=== PATIENT | male | born 1960 | race Caucasian/White ===

== ENCOUNTER → 2020-09-30 10:50 | Outpatient (CLI) | payer OTHER, SELFPAY ==
--- NOTE | ~2020-09-30 | CT_ITS ---
EXAMINATION: CT abdomen pelvis w con DATE: 09/30/2020 11:21 INDICATION: Right upper quadrant abdominal pain TECHNIQUE: Computed tomography (CT) of the abdomen and pelvis was performed with 100 cc Omnipaque 350 intravenous contrast. Automated exposure control and iterative reconstruction technique were employe d. Exam dose: 1048.89 mGy-cm total exam DLP. COMPARISON: None. FINDINGS: The lung bases are clear of infiltrate or consolidation. Normal heart size. No pericardial or pleural effusion. Calcified right hilar nodes, calcified right lower lobe pulmonary granuloma and calcified splenic gra nulomas, consistent with old granulomatous disease. No hepatic space-occupying mass lesion. The gallbladder appears unremarkable. No bile duct or pancrea tic duct dilatation. No pancreatic mass lesion or calcification. Normal splenic size. Normal morphology of the adrenal glands. 1.4 cm upper pole right renal cyst. No space-occupying mass lesion of the kidneys is noted otherwise. No urinary tract calculus or hydroureteronephrosis. The urinary bladder is unremarkable. There is pr ostate enlargement and multiple prostate calcifications. Mild atherosclerotic calcification of the abdominal aorta. No abdominal aortic aneurysm. No intraperitoneal or retroperitoneal or pelvic mass lesion or adenopathy or ascites. Diverticulosis of the colon, mainly involving the sigmoid and descending colon; no CT evidence of div erticulitis. No bowel obstruction, bowel wall thickening, pneumatosis or intraperitoneal free air. No evidence of appendicitis. Chronic fracture deformity of the posterior aspect of the left 11th rib. Likely chronic compression fracture deformity of L4. Bilateral hip osteoarthritis. No suspicious osteolytic or osteoblastic lesions. IMPRESSION: 1.4 cm upper pole right renal cyst Diverticulosis of the colon; no CT evidence of diverticulitis Probable chronic compression fracture deformity of L4 Chronic fracture deformity of posterior left 11th rib Bilateral hip osteoarthritis Reviewed, dictated and finalized at [facility]. Reviewed, dictated and finalized at location B. OPALEONTOLOGIST
--- NOTE | ~2020-09-30 | CT_ITS ---
EXAMINATION: CT lung screening DATE: 09/30/2020 11:21 INDICATION: Personal history of tobacco dependence, prior smoker with 40 pack year history TECHNIQUE: Computed tomography (CT) of the chest was performed without intravenous contrast. The dose -length product (DLP) was 182.48 mGy-cm. Automated exposure control and iterative reconstruction tech YAZUO were employed. COMPARISON: None FINDINGS: There is mild emphysema. No suspicious pulmonary nodules are identified. Calcified pulmonar y nodules and calcified right hilar and subcarinal lymph nodes are consistent with old granulomatous disease. No pathologically enlarged thoracic lymph nodes are identified. The heart size is normal. Th ere is a 4.7 cm fusiform aneurysm of the ascending aorta. Calcified coronary artery atherosclerosis i s noted. Punctate calcifications in an otherwise normal spleen likely represent healed granulomatous disease. There is mild thoracic spondylosis. There is an old left 11th rib fracture. IMPRESSION: 1. Lung-RADS category 1S: Negative. Continue annual screening with noncontrast low-dose chest CT in 1 2 months. 2. 4.7 cm fusiform aneurysm of the ascending aorta. Reviewed, dictated and finalized at location [facility]. YTICAL STRATEGIST IMPRESSION: 1. Lung-RADS category 1S: Negative. Continue annual screening with noncontrast low-dose chest CT in 12 months. 2. 4.7 cm fusiform aneurysm of the ascending aorta.
[2020-09-30 11:09] LABS: Estimated Glomerular Filt Rate > 60
== END ==
PROVIDERS: PCP Internal Medicine; Visit Provider Internal Medicine
DX: Z12.2 Encounter for screening for malignant neoplasm of respiratory organs (principal); Z87.891 Personal history of nicotine dependence; R10.9 Unspecified abdominal pain; N28.1 Cyst of kidney, acquired; K57.30 Diverticulosis of large intestine without perforation or abscess without bleeding; S22.32XA Fracture of one rib, left side, initial encounter for closed fracture; M16.0 Bilateral primary osteoarthritis of hip
CPT/HCPCS: 71271; 74177; Q9967

== ENCOUNTER → 2020-11-18 07:40 | Outpatient (CLI) | payer OTHER, SELFPAY ==
--- NOTE | ~2020-11-18 | US_ITS ---
EXAMINATION: US right upper quadrant EXAM DATE: 11/18/2020 08:10 INDICATION: Right upper quadrant pain. TECHNIQUE: Multiple grayscale and Doppler images of the abdomen right upper quadrant were obtained (b y a technologist who performed the scan) and subsequently reviewed. There is no prior study for sujatha padilla. FINDINGS: The pancreatic head and body are normal in appearance. The pancreatic tail is not visualized. There is echogenic liver parenchyma, hepatic steatosis. Small region focal fatty sparing in characteristi c location. There is no evidence of intrahepatic biliary duct dilation. Portal venous flow was seen in the hepatopedal, normal direction and has normal Doppler waveform. No right-sided hydronephrosis . Common bile duct measures 4 mm, which is normal. The gallbladder wall is normal in thickness, with ex pected amount of distention. No sonographic evidence of pericholecystic fluid. There is no cholelit hiases. Technologist performing exam reports patient did not demonstrate sonographic Portillo's sign. Please note that this sign is less reliable in patients who have received pain medication. IMPRESSION: Hepatic steatosis. Reviewed, dictated and finalized at location [facility]. IMPRESSION: Hepatic steatosis.
== END ==
PROVIDERS: PCP Internal Medicine
DX: R10.11 Right upper quadrant pain (principal); K76.0 Fatty (change of) liver, not elsewhere classified
CPT/HCPCS: 76705

== ENCOUNTER → 2022-03-08 17:07 | Outpatient (CLI) | payer OTHER, SELFPAY ==
--- NOTE | ~2022-03-08 | MR_ITS ---
EXAMINATION: MR lumbar spine wo con DATE: 03/08/2022 17:34 INDICATION: Low back pain TECHNIQUE: Magnetic resonance imaging (MRI) of the lumbar spine was performed without intravenous con trast. Sequences included sagittal T2-weighted FSE, sagittal T2-weighted FS FSE, sagittal T1-weighted FSE, and axial T2-weighted FSE. COMPARISON: None FINDINGS: 3 mm anterolisthesis L4 on L5. Alignment is otherwise normal. Mild superior endplate compression frac ture with 20% right anterior vertebral body height loss at L4 with superimposed small Schmorl's node. There is prominent marrow edema at both sides of the abdomen right facet joints at L4-L5. Bone marro w signal is otherwise normal. Marrow signal is otherwise normal. Moderate disc height loss at L5-S1. Mild disc height loss at L3-L4 and L4-L5 and mild disc desiccation without disc height loss at L2-L3. The conus medullaris terminates at L1-L2. There is normal signal in the caudal spinal cord. Paravert ebral soft tissues are unremarkable. The following disc levels are specifically discussed: T12-L1: Disc is mildly bulging. There is mild bilateral facet joint osteoarthritis. There is no neura l foraminal stenosis. There is minimal central canal stenosis. L1-L2: Disc is bulging. There is left and moderate right facet joint osteoarthritis. There is mild le ft neural foraminal stenosis. There is mild central canal stenosis. L2-L3: Disc is mildly bulging. There is moderate bilateral facet joint osteoarthritis. There is mild bilateral neural foraminal stenosis. There is minimal central canal stenosis. L3-L4: Disc is bulging. There is moderate bilateral facet joint osteoarthritis. There is mild to mode rate bilateral neural foraminal stenosis. There is mild central canal stenosis. L4-L5: Annular fissure and broad-based disc extrusion extending from foraminal zone to foraminal zone with disc material extending a couple millimeters cephalad to the level of the inferior endplate of L4. There is severe bilateral facet joint osteoarthritis. There is moderate bilateral neural foramina l stenosis. There is moderate central canal stenosis. L5-S1: Disc is bulging. There is moderate left and mild to moderate right facet joint osteoarthritis. There is right and mild to moderate left neural foraminal stenosis. There is no central canal stenos is. IMPRESSION: 1. Moderate lower lumbar predominant spondylosis with moderate central canal stenosis at L4-L5 and mu ltilevel mild to moderate neural foraminal stenosis. 2. Prominent marrow edema associated with severe bilateral facet osteoarthritis at L4-L5. Reviewed, dictated and finalized at location A. IMPRESSION: 1. Moderate lower lumbar predominant spondylosis with moderate central canal st enosis at L4-L5 and multilevel mild to moderate neural foraminal stenosis. 2. Prominent marrow edema associated with severe bilateral facet osteoarthritis at L4-L5.
== END ==
PROVIDERS: PCP Internal Medicine; Visit Provider Internal Medicine
DX: M54.50 Low back pain, unspecified (principal); M47.816 Spondylosis without myelopathy or radiculopathy, lumbar region; M48.061 Spinal stenosis, lumbar region without neurogenic claudication; M79.89 Other specified soft tissue disorders; M85.88 Other specified disorders of bone density and structure, other site
CPT/HCPCS: 72148

== ENCOUNTER → 2022-04-06 15:17 | Outpatient (CLI) | payer OTHER, SELFPAY ==
--- NOTE | ~2022-04-06 | CT_ITS ---
EXAMINATION: CT abdomen pelvis wo con DATE: 04/06/2022 15:37 INDICATION: Blood in urine TECHNIQUE: Computed tomography (CT) of the abdomen and pelvis was performed without intravenous contr ast. Automated exposure control and iterative reconstruction technique were employed. The dose-length product was 611.21 mGy-cm. COMPARISON: 09/30/2020.. FINDINGS: Lower thorax: Scattered trace bibasilar atelectasis. Aortic and mitral calcification. Liver: Normal. Biliary/Gallbladder: Partially contracted. No bile duct dilation. Pancreas: No mass or duct dilation. Spleen: Granulomatous calcifications. Adrenals:No mass. Kidneys: No suspicious mass, stone, or hydronephrosis. Simple right upper pole cyst. GI tract: No small or large bowel dilation. Normal appendix. Diverticulosis without diverticulitis. Mesentery/Peritoneum: No ascites, mass, or free air. Retroperitoneum: No mass. Atherosclerotic abdominal aortic and/or arterial calcifications. Pelvis: Minimal layering hyperdensity in the dependent urinary bladder. No bladder wall thickening or surrounding inflammatory change. Prostatomegaly with calcification.. Soft Tissues: Small, uncomplicated bilateral fat-containing inguinal hernias, otherwise the soft tiss ues tissues and body wall are unremarkable. Bones: No acute osseous finding. IMPRESSION: Minimal hyperdense material layering in the dependent urinary bladder, may reflect hemorrhage in ligh t of the given history. No nephrolithiasis or obstructive uropathy. No renal or collecting system mas s detected in this noncontrast examination. No other acute abdominopelvic process detected. Reviewed, dictated and finalized at location [facility]. IMPRESSION: Minimal hyperdense material layering in the dependent urinary bladder, may refl ect hemorrhage in light of the given history. No nephrolithiasis or obstructive uropathy. No renal or collecting system mass detected in this noncontrast exam ination. No other acute abdominopelvic process detected.
== END ==
PROVIDERS: PCP Internal Medicine; Visit Provider Internal Medicine
DX: R31.9 Hematuria, unspecified (principal); R93.41 Abnormal radiologic findings on diagnostic imaging of renal pelvis, ureter, or bladder
CPT/HCPCS: 74176

== ENCOUNTER → 2022-09-10 12:40 | Outpatient (CLI) | payer OTHER, SELFPAY ==
--- NOTE | ~2022-09-10 | US_ITS ---
EXAMINATION: US venous doppler LE RT DATE: 09/10/2022 13:05 INDICATION: Right lower limb localized swelling. TECHNIQUE: Grayscale ultrasound images without and with compression and Doppler ultrasound images of the right lower extremity veins were obtained. COMPARISON: None. FINDINGS: The visualized portions of right common femoral vein, profunda (deep) femoral vein, and greater saphe nous vein outflow are patent. There is thrombus in right femoral, popliteal, posterior tibial, perone al, gastrocnemius, and lesser saphenous veins. IMPRESSION: 1. Deep vein thrombosis involving right femoral, popliteal, posterior tibial, peroneal, and gastrocn emius veins. I called this result to Bernice Abbasi. 2. Superficial vein thrombosis involving right lesser saphenous vein. Reviewed, dictated and finalized at location A. [employer] IMPRESSION: 1. Deep vein thrombosis involving right femoral, popliteal, posterior tibial, peroneal, and gastrocnemius veins. I called this result to Bernice Abbasi. 2. Superficial vein thrombosis involving right lesser saphenous vein.
== END ==
PROVIDERS: PCP Physician Assistant; Visit Provider Physician Assistant
DX: I82.811 Embolism and thrombosis of superficial veins of right lower extremity (principal)
CPT/HCPCS: 93971

== ENCOUNTER 2022-09-10 13:44 | Emergency (ER) | payer OTHER, SELFPAY ==
[2022-09-10 13:47] VITALS: BP 149/100; PULSE 72; RESP 18; TEMP 36.6; O2SAT 100
--- NOTE | 2022-09-10 14:42 | ED.EXTPRO ---
HPI - Extremity Problem General Chief complaint: Extremity Problem,Nontraumatic Stated complaint: blood clot in leg Time Seen by Provider: 09/10/22 14:06 History of Present Illness HPI Narrative: 62-year-old male presenting to the emergency department for evaluation of right lower leg pain secondary to a DVT. Patient states that last week on Tuesday he was golfing and Tuesday started having some posterior leg pain. Patient states over the course of the week the pain did worsen. Patient also describes pain behind the knee and radiating up the right thigh. Patient did have follow-up with his primary care physician and had an outpatient ultrasound ordered. Patient was sent from the imaging center for treatment of his DVT. Patient denies any prior history of PE DVT. Patient denies any hormone replacement, denies any recent long car rides or plane flights. Patient denies any active bleeding. Patient states that he does have a history of ulcer but denies any bleeding ulcer, denies any hematemesis denies any hematochezia. Patient denies any recent surgeries. Related Data Allergies Allergy/AdvReac Type Severity Reaction Status Date / Time No Known Allergies Allergy Verified 09/10/22 14:56 Review of Systems Review of Systems: CONSTITUTIONAL: Denies fever, chills, or sweats. EYES: Denies visual changes, redness, or discharge. ENT: Denies rhinorrhea, congestion, sore throat, or otalgia. CARDIOVASCULAR: Denies chest pain, palpitations, or edema. RESPIRATORY: Denies cough or dyspnea. GASTROINTESTINAL: Denies abdominal pain, nausea, vomiting, or diarrhea. GENITOURINARY: Denies dysuria or hematuria. SKIN: Denies rash or itching. MUSCULOSKELETAL: Left lower leg pain NEUROLOGIC: Denies headache, numbness, or weakness. PSYCHIATRIC: Denies anxiety or depression. Exam Narrative: APPEARANCE: Well appearing, no pain, no distress, well-nourished. HEAD: normocephalic, atraumatic. EYES: PERRLA/EOMI, conjunctivae clear. NOSE: Normal no drainage NECK: Supple. No adenopathy, no masses. RESPIRATORY: Airway patent, respirations nonlabored. Clear to auscultation bilaterally, no rales, rhonchi, wheezing. CARDIOVASCULAR: Regular rate and rhythm without murmurs rubs or gallops. ABDOMINAL: Soft, nontender, nondistended, normal bowel sounds MUSCULOSKELETAL: Moves all extremities. Right-sided posterior calf tenderness. Mild lower extremity edema with no erythema. Neurovascular intact NEURO: Alert. Cranial nerves II through XII intact. Grossly intact SKIN: Warm, dry. Normal Color Course Course Emergency Course: Patient is afebrile with no tachycardia, no hypoxia. Patient denies any associated chest pain or shortness of breath. Patient has been taking ibuprofen for pain control. Patient was started on Xarelto and was educated on reasons to return to the emergency department including worsening chest pain, shortness of breath or bleeding. Pulmonary embolism was considered but with patient's lack of shortness of breath, lack of chest pain normal sinus rhythm without hypoxia it was deemed less likely. Patient was also encouraged of close follow-up with his primary care physician. Patient was told to stop taking ibuprofen will be provided some Leonard for pain control. Patient was educated on the use of Tylenol and Leonard and the risk of taking excessive acetaminophen. All question concerns were addressed. Patient was comfortable with the plan for discharge and close follow-up. Vital Signs Vital signs: Vital Signs Temperature 97.8 F 09/10/22 13:47 Pulse Rate 72 09/10/22 13:47 Respiratory Rate 18 09/10/22 13:47 Blood Pressure 149/100 H 09/10/22 13:47 Pulse Oximetry 100 09/10/22 13:47 Oxygen Delivery Room Air 09/10/22 13:47 Temperature 97.8 F 09/10/22 13:47 Pulse Rate 99 09/10/22 15:25 Respiratory Rate 18 09/10/22 15:25 Blood Pressure 142/86 H 09/10/22 15:25 Pulse Oximetry 98 09/10/22 15:25 Oxygen Delivery Room Air 01
[2022-09-10] MEDS: RIVAROXABAN 15 MG TABLET PO (14:56)
[2022-09-10 15:25] VITALS: BP 142/86; PULSE 99; RESP 18; O2SAT 98
== END 2022-09-10 15:27 | disposition home or self-care (01) ==
PROVIDERS: Emergency Provider Emergency Medicine; PCP Physician Assistant
DX: I82.411 Acute embolism and thrombosis of right femoral vein (principal); I82.431 Acute embolism and thrombosis of right popliteal vein; I82.441 Acute embolism and thrombosis of right tibial vein; I82.451 Acute embolism and thrombosis of right peroneal vein; I82.461 Acute embolism and thrombosis of right calf muscular vein
CPT/HCPCS: 99283; A9270

== ENCOUNTER → 2022-11-17 10:12 | Outpatient (CLI) | payer OTHER, SELFPAY ==
--- NOTE | ~2022-11-17 | CT_ITS ---
EXAMINATION: CT abdomen pelvis wo/w con DATE: 11/17/2022 11:06 INDICATION: Gross hematuria TECHNIQUE: Computed tomography (CT) of the abdomen and pelvis was performed without intravenous contr ast. CT of the abdomen and pelvis was then performed with a total of 130 mL Omnipaque 350 intravenous contrast using a double-bolus technique for simultaneous opacification of the renal parenchyma and r enal collecting system. The dose-length product (DLP) was 2150.76 mGy-cm. Automated exposure control and iterative reconstruction technique were employed. COMPARISON: 04/06/2022 FINDINGS: Minimal dependent atelectasis is present in the lung bases. The heart size is normal. Punct ate calcifications in an otherwise normal spleen likely represent healed granulomatous disease. The l iver, pancreas, gallbladder, and adrenal glands are normal. There is a punctate nonobstructing stone of the left kidney upper pole. No stones are identified in the ureters or bladder. Cysts of the kidne ys measure up to 1.3 cm on the right. No suspicious urothelial or renal lesion. No pathologically enl arged abdominal or pelvic lymph nodes are identified. There is a chronic compression fracture L4. No free intraperitoneal gas or evidence of bowel obstruction. IMPRESSION: 1. No CT correlate for the patient's symptoms. Punctate nonobstructing left nephrolithiasis. Reviewed, dictated and finalized at location B. IMPRESSION: 1. No CT correlate for the patient's symptoms. Punctate nonobstructing left nep hrolithiasis.
--- NOTE | ~2022-11-17 | XR_ITS ---
EXAMINATION: XR abdomen/kub 1V INDICATION: Gross hematuria TECHNIQUE: Supine views of the abdomen were obtained on 2 radiographs. COMPARISON: None FINDINGS: No urolithiasis is identified. The bowel gas pattern is normal. There is moderate osteoarth ritis of the hips. IMPRESSION: 1. No urolithiasis identified. Reviewed, dictated and finalized at location B.
[2022-11-17 10:44] LABS: Estimated Glomerular Filt Rate > 60
== END ==
PROVIDERS: PCP Urology; Visit Provider Urology
DX: R31.0 Gross hematuria (principal); N20.0 Calculus of kidney
CPT/HCPCS: 74018; 74178; Q9967

== ENCOUNTER 2023-04-01 11:24 | Emergency (ER) | payer OTHER, SELFPAY ==
[2023-04-01 11:56] VITALS: BP 143/77; PULSE 66; RESP 14; TEMP 36.3; O2SAT 100
--- NOTE | 2023-04-01 12:52 | ED.GENADULT ---
HPI - General Adult General Chief complaint: Skin/Abscess/Foreign Body Stated complaint: possible cellulitis of right elbow Time Seen by Provider: 04/01/23 12:03 Source: patient Mode of arrival: ambulatory Limitations: no limitations History of Present Illness HPI narrative: This is a 63-year-old male with PMH of DVT who presents to the ED with chief complaint of right upper extremity pain, swelling and redness. He is concerned for cellulitis. He states he had a couple of bug bites on his elbow that he has been scratching over the past few days. He states he has a history of blood clot in his calf in the past and is currently on a Xarelto regimen. Denies fevers, chills, nausea, vomiting, LOC, pain, cough. Related Data Allergies Allergy/AdvReac Type Severity Reaction Status Date / Time No Known Allergies Allergy Verified 04/01/23 12:02 Review of Systems Review of Systems: All systems as dictated in HPI Exam Narrative: GENERAL: Well-appearing, well-nourished, and in no acute distress. HEAD: Normocephalic, atraumatic. EYES: PERRLA and EOMI. ENT: Nares clear, no rhinorrhea or epistaxis. Mucous membranes moist. Oropharynx without tonsillar hypertrophy exudate or other lesions. NECK: Supple. No adenopathy or masses. CHEST: No respiratory distress. Clear to auscultation. No wheezes rales or rhonchi HEART: Regular rate and rhythm. No murmur heard. Normal peripheral pulses. ABDOMEN: Soft, nontender, nondistended, normal active bowel sounds. MSK: LUE: Benign. RUE: Moderate swelling around the medial forearm and elbow area. Erythematous and warm. Mild tenderness. Full range of motion of the elbow joint and full strength of the upper arm. Strong distal pulses. SKIN: Warm, dry, no rash. NEURO: Alert and oriented x3. No focal deficits. PSYCH: Normal mood and affect. Course Vital Signs Vital signs: Vital Signs Temperature 97.3 F L 04/01/23 11:56 Pulse Rate 66 04/01/23 11:56 Respiratory Rate 14 04/01/23 11:56 Blood Pressure 143/77 H 04/01/23 11:56 Pulse Oximetry 100 04/01/23 11:56 Oxygen Delivery Room Air 04/01/23 11:56 Temperature 97.3 F L 04/01/23 11:56 Pulse Rate 65 04/01/23 15:16 Respiratory Rate 18 04/01/23 15:16 Blood Pressure 145/70 H 04/01/23 15:16 Pulse Oximetry 100 04/01/23 15:16 Oxygen Delivery Room Air 04/01/23 11:56 Medical Decision Making MDM Narrative Medical decision making narrative: This is a 63-year-old male who presents to the ED with chief complaint of right arm cellulitis concern. He has had redness and swelling for the past few days. Vitals are normal. Afebrile. The elbow and forearm are red, swollen and erythematous. Symptoms are most likely consistent with cellulitis. He is currently on Xarelto for DVT of the lower leg that occurred several months ago. Low concern for any kind of blood clot in the arm. Lab work is largely unremarkable. Mild leukocytosis and mild elevation in CRP. He was given IV clindamycin here. He is stable for discharge home. Does not have any immunocompromising condition. Prescription for clindamycin given. Pt will be discharged in stable condition. Return precautions given and supportive measures discussed. Pt is understanding and agreeable with plan for discharge and follow-up with PCP. Vital Signs Vital Signs: Vital Signs Temperature 97.3 F L 04/01/23 11:56 Pulse Rate 66 04/01/23 11:56 Respiratory Rate 14 04/01/23 11:56 Blood Pressure 143/77 H 04/01/23 11:56 Pulse Oximetry 100 04/01/23 11:56 Oxygen Delivery Room Air 04/01/23 11:56 Temperature 97.3 F L 04/01/23 11:56 Pulse Rate 65 04/01/23 15:16 Respiratory Rate 18 04/01/23 15:16 Blood Pressure 145/70 H 04/01/23 15:16 Pulse Oximetry 100 04/01/23 15:16 Oxygen Delivery Room Air 04/01/23 11:56 Lab Data 04/01/23 13:21 04/01/23 13:21 Labs: Lab Results 04/01/23 Range/Units 13
[2023-04-01] MEDS: SODIUM CHLORIDE 0.9% IV 1,000 ML 999 ML IV CONT (13:23)
[2023-04-01 13:32] LABS: Basophils Percent Auto 0.4 % (0.2-1.2); Eosinophils Absolute Auto 0.2 K/mm3 (0-0.3); Eosinophils Percent Auto 1.7 % (0-4.4); Hematocrit 51.9 % (42.0-52.0); Hemoglobin 17.5 g/dL (14.0-18.0); Immature Granulocyte Absolute 0.05 K/mm3 (0.00-0.031); Immature Granulocyte Percent A 0.5 % (0-0.5); Lymphocytes Absolute Auto 1.51 K/mm3 (0.9-3.2); Lymphocytes Percent Auto 14.2 % (18.3-44.2); Mean Corpuscular HGB Conc 33.7 g/dl (32-36); Mean Corpuscular Hemoglobin 31.3 pg (26-34); Mean Corpuscular Volume 92.8 fl (80-100); Monocytes Absolute Auto 0.6 K/mm3 (0.1-0.6); Monocytes Percent Auto 5.3 % (2.6-8.5); Neutrophils Absolute Auto 8.3 K/mm3 (1.3-6.7); Neutrophils Percent Auto 77.9 % (45.5-73.1); Platelet Count Result 221 k/mm3 (150-375); Red Blood Count 5.59 M/mm3 (4.6-6.20); Red Cell Distribution Width 11.8 % (11.5-14.5); White Blood Count 10.7 K/mm3 (4.5-10.0)
[2023-04-01 13:43] LABS: Alanine Aminotransferase 30 U/L (6-50); Albumin Level 4.5 g/dL (3.5-5.1); Alkaline Phosphatase 107 U/L (38-126); Anion Gap 6 mmol/L (8-16); Aspartate Amino Transferase 31 U/L (17-59); Bilirubin,Total 1.1 mg/dL (0.2-1.3); Blood Urea Nitrogen 20 mg/dL (9-20); CRP 3.6 mg/dL (<1.0); Calcium 9.2 mg/dL (8.4-10.2); Carbon Dioxide 26 mmol/L (22-30); Chloride 106 mmol/L (98-107); Estimated CRCL calculation 102 ml/min; Estimated Glomerular Filt Rate > 60; Glucose 97 mg/dL (65-110); Potassium 3.8 mmol/L (3.4-5.0); Sodium 138 mmol/L (137-145)
[2023-04-01] MEDS: CLINDAMYCIN 450 MG in DEXTROSE 5% IN WATER 50 ML 106 MG IVPB (14:35)
[2023-04-01 15:16] VITALS: BP 145/70; PULSE 65; RESP 18; O2SAT 100
== END 2023-04-01 15:21 | disposition home or self-care (01) ==
PROVIDERS: Emergency Provider Physician Assistant; PCP Urology
DX: L03.113 Cellulitis of right upper limb (principal); Z79.01 Long term (current) use of anticoagulants
CPT/HCPCS: 36415; 80053; 85025; 86140; 87040; 96361; 96365; 99284; J7030

== ENCOUNTER → 2023-05-09 14:26 | Outpatient (CLI) | payer OTHER, SELFPAY ==
--- NOTE | ~2023-05-09 | US_ITS ---
EXAMINATION: US soft tissue UE RT DATE: 05/09/2023 14:45 INDICATION: Right upper limb cellulitis. TECHNIQUE: Multiple grayscale and Doppler ultrasound images of the right upper limb were obtained. COMPARISON: None FINDINGS: Posterior to the elbow, there is soft tissue swelling with trace fluid, consistent with bur sitis. IMPRESSION: 1. Olecranon bursitis. Reviewed, dictated and finalized at location A. IMPRESSION: 1. Olecranon bursitis.
== END ==
PROVIDERS: PCP Physician Assistant; Visit Provider Physician Assistant
DX: M70.21 Olecranon bursitis, right elbow (principal)
CPT/HCPCS: 76882

== ENCOUNTER 2023-11-03 08:40 | Outpatient (CLI) | payer OTHER, SELFPAY ==
--- NOTE | ~2023-11-03 | US_ITS ---
EXAMINATION: US venous doppler LE RT DATE: 11/03/2023 09:16 INDICATION: Acute embolism and thrombosis of unspecified deep veins of the lower limbs. Lower limb pa in and erythema TECHNIQUE: Grayscale ultrasound images without and with compression and Doppler ultrasound images of the right lower extremity veins were obtained. COMPARISON: 09/10/2022 FINDINGS: The visualized portions of right common femoral vein, profunda (deep) femoral vein, femoral vein, pop liteal vein, peroneal trunk, posterior tibial veins, peroneal veins, gastrocnemius vein and greater s aphenous vein outflow are now patent. IMPRESSION: 1. No deep venous thrombosis in the right lower limb. Reviewed, dictated and finalized at location A.
== END 2023-11-03 08:41 ==
PROVIDERS: PCP Emergency Medicine; Visit Provider Physician Assistant
DX: I82.409 Acute embolism and thrombosis of unspecified deep veins of unspecified lower extremity (principal)
CPT/HCPCS: 93971

== ENCOUNTER 2023-12-23 07:56 | Outpatient (CLI) | payer OTHER, SELFPAY | END 2023-12-23 07:57 | disposition home or self-care (01) | LOC: ANHAUDIO 07:57 | PROVIDERS: PCP Emergency Medicine; Visit Provider Emergency Medicine | DX: H93.13 Tinnitus, bilateral (principal); H90.3 Sensorineural hearing loss, bilateral | CPT/HCPCS: 92557; 92567 ==

== ENCOUNTER 2024-02-19 19:47 | Emergency (ER) | payer OTHER, SELFPAY ==
[2024-02-19 19:48] VITALS: BP 176/99; PULSE 77; RESP 16; TEMP 36.6; O2SAT 100
--- NOTE | 2024-02-19 20:14 | ED.SKABFB ---
HPI - Skin/Abscess/Foreign Bdy General Chief complaint: Skin/Abscess/Foreign Body Stated complaint: Splinter in right saxena Time Seen by Provider: 02/19/24 20:09 Source: patient Mode of arrival: ambulatory Limitations: no limitations History of Present Illness HPI narrative: this is a 64-year-old male who presents to the ED with chief complaint of splinter in his right saxena that occurred about 30 minutes prior to arrival. Patient states that he was cutting grass on his 0 turn mower. He went under a pine tree and accidentally went into a branch. He reports a splinter to the right anterior saxena. he tried for several minutes to remove the splinter with tweezers but cannot make any progress. Denies any further sites of pain or injury. Reports chronic swelling right lower extremity Related Data Allergies Allergy/AdvReac Type Severity Reaction Status Date / Time No Known Allergies Allergy Verified 02/19/24 19:48 Review of Systems Review of Systems: All systems as dictated in HPI Exam Narrative: GENERAL: Well-appearing, well-nourished, and in no acute distress. HEAD: Normocephalic, atraumatic. EYES: PERRLA and EOMI. ENT: Nares clear, no rhinorrhea or epistaxis. Mucous membranes moist. Oropharynx without tonsillar hypertrophy exudate or other lesions. NECK: Supple. No adenopathy or masses. CHEST: No respiratory distress. Clear to auscultation. No wheezes rales or rhonchi HEART: Regular rate and rhythm. No murmur heard. Normal peripheral pulses. ABDOMEN: Soft, nontender, nondistended, normal active bowel sounds. MSK: Normal range of motion. No edema. SKIN: there is 2 small abrasions to the right anterior saxena with wood splinter noted. NEURO: Alert and oriented x4. No focal deficits. PSYCH: Normal mood and affect. Course Vital Signs Vital signs: Vital Signs Temperature 97.8 F 02/19/24 19:48 Pulse Rate 77 02/19/24 19:48 Respiratory Rate 16 02/19/24 19:48 Blood Pressure 176/99 H 02/19/24 19:48 Pulse Oximetry 100 02/19/24 19:48 Temperature 97.8 F 02/19/24 19:48 Pulse Rate 79 02/19/24 21:00 Respiratory Rate 16 02/19/24 21:00 Blood Pressure 146/82 H 02/19/24 21:00 Pulse Oximetry 100 02/19/24 21:00 Procedures Foreign Body Removal Foreign Body #1: Foreign Body Removal Date: 02/19/24 Foreign Body Removal Time: 20:45 Site: right and lower extremity Description of foreign body: other (pine wood splinter) Sedation/Analgesia: none Technique: removal with forceps and incision made to facilitate removal Confirmed by:: direct visualization Complications: none Post-procedure exam: awake, alert Foreign Body Removal Narrative: 2 cm wood splinter was identified in the right anterior saxena. It was imbedded and the subcutaneous tissue. Local infiltration and lidocaine 1% with epinephrine used for anesthetic. A very, very small epidermis incision made with scissors to facilitate extraction of the splinter. Splinter was fully removed. No residual pieces. Area was irrigated. Tolerated the procedure well. Discharge Plan Discharge Clinical Impression: Splinter Patient Disposition: Home, Self-Care Condition: Stable Instructions: Antibiotic Form Additional Instructions: Your exam today showed embedded splinter in the subcutaneous tissue. It was fully removed here. Please continue to keep the area very clean with soapy water washes. Use simple bandage with triple antibiotic If you have any new or worsening symptoms please return to the ER for further evaluation. Prescriptions: No Action Xarelto DVT-PE Treat 30d Start 15 mg (42)- 20 mg (9) tablets,dose pack See Rx Instructions .ROUTE .COMPLEX Qty: 51 0RF Rx Instructions: take one-15 mg tablet twice daily for 21 days, then one-20 mg tablet once daily; must take with meal/food hydrocodone-acetaminophen 5-325 mg tablet 1 tablet PO Q8
[2024-02-19 21:00] VITALS: BP 146/82; PULSE 79; RESP 16; O2SAT 100
== END 2024-02-19 21:00 | disposition home or self-care (01) ==
PROVIDERS: Emergency Provider Physician Assistant; PCP Emergency Medicine
DX: S80.851A Superficial foreign body, right lower leg, initial encounter (principal); W45.8XXA Other foreign body or object entering through skin, initial encounter
CPT/HCPCS: 10120; 99282

== ENCOUNTER 2024-02-23 12:57 | Outpatient (CLI) | payer OTHER, SELFPAY ==
--- NOTE | ~2024-02-23 | US_ITS ---
EXAMINATION:US venous doppler LE RT INDICATION:Localized edema TECHNIQUE: Multiple grayscale, color flow and Doppler images of the right lower extremity deep venous systems were obtained and reviewed. COMPARISON:Ultrasound dated 11/03/2023 FINDINGS: The common femoral, superficial femoral and popliteal veins demonstrate normal respiratory variation, augmentation and compressibility. Color flow is also seen within the posterior tibial, pe roneal, greater saphenous and profunda veins. IMPRESSION: 1: No lower extremity deep venous thrombosis. Reviewed, dictated and finalized at location B.
== END 2024-02-23 12:58 ==
LOC: MICIMG 12:58
PROVIDERS: PCP Emergency Medicine; Visit Provider Emergency Medicine
DX: R60.0 Localized edema (principal)
CPT/HCPCS: 93971

== ENCOUNTER 2024-03-01 10:22 | Outpatient (CLI) | payer OTHER, SELFPAY ==
--- NOTE | ~2024-03-01 | US_ITS ---
EXAMINATION: US soft tissue LE RT DATE: 03/01/2024 10:51 INDICATION: Assess for retained foreign body TECHNIQUE: Multiple grayscale and Doppler ultrasound images of the lesion of concern at the mid right lower leg were obtained. COMPARISON: None FINDINGS: There is a small echogenic focus along the surface of a small shallow invagination of the interrupted skin surface likely representing a scar. There is a small tract of decreased echogenicity extending possibly 7 mm deep to the skin surface likely representing edema and healing tissue along the tract o f a reportedly debrided foreign body. No evident residual echogenic or shadowing retained foreign bod y identified. IMPRESSION: 1. No evident residual foreign body. Reviewed, dictated and finalized at location A.
== END 2024-03-01 10:23 ==
LOC: MICIMG 10:22
PROVIDERS: PCP Emergency Medicine; Visit Provider Emergency Medicine
DX: Z87.821 Personal history of retained foreign body fully removed (principal)
CPT/HCPCS: 76882

== ENCOUNTER 2024-03-15 10:52 | Outpatient (CLI) | payer OTHER, SELFPAY ==
--- NOTE | ~2024-03-15 | CT_ITS ---
CT sinus wo con Ordering provider: Nicole Stoddard, History: . PERSISTENT COUGH . Comparison: None. Technique: Thin slice Scans CT of the paranasal sinuses was performed with coronal and sagittal refor matted images. No IV contrast. . Automated exposure control and iterative reconstruction technique w ere employed. The dose-length product was 289.74 mGy-cm. Findings: NASAL SEPTUM: midline. OSTEOMEATAL UNITS: Bilaterally patent. NASAL TURBINATES AND NASOPHARYNX: Normal. PARANASAL SINUSES: Hyperdense mass seen in the left frontal sinus suggestive of osteoma.: Mucosal Thi ckening in the right maxillary, left maxillary and right frontal sinuses. VISUALIZED MASTOIDS: Effusion in the right mastoid air cells. BONES: Normal. SUPERFICIAL SOFT TISSUES/VISUALIZED BRAIN PARENCHYMA: Normal. IMPRESSION: Osteoma of the left frontal sinus. Thickening of both maxillary sinuses and right frontal sinus. Reviewed, dictated and finalized at location A.
--- NOTE | ~2024-03-15 | MR_ITS ---
Procedure: MR lumbar spine wo con Ordering provider: Nicole Stoddard, History: . FOOT DROP . Comparison: March 08, 2022 Technique: MRI lumbar spine without contrast. FINDINGS: SPINAL CORD: Normal. The cord ends at the level of L1-L2. VERTEBRAL BODIES: Normal height and alignment. No compression fracture. Normal marrow signal. Hemangi david seen in S1 and L5. T2 bright signal seen in the left pedicle of L4. DISK SPACES: Narrowing of the disc L5-S1. L1-L2: Mild diffuse disc bulge. Bilateral facet joint disease. L2-L3: Bilateral facet joint disease. L3-L4: Mild diffuse disc bulge. Bilateral facet joint disease. Bilateral narrowing of the foramina with bilateral nerve root compression. L4-L5: Moderate spinal canal stenosis. Bilateral facet joint disease. Diffuse disc bulge with bilater al narrowing of the foramina and nerve root compression. Annular fissure is noted. L5-S1: Diffuse disc bulge. Bilateral narrowing of the foramina with nerve root compression. Right sacroiliitis. PARASPINOUS SOFT TISSUES: Normal. IMPRESSION: No compression fracture. Multilevel degenerative disc disease with multilevel narrowing of the foramina with nerve root compre ssion. Bright signal in the left L4 pedicle unchanged from previous examination most likely hemangioma. Reviewed, dictated and finalized at location A. IMPRESSION: No compression fracture. Multilevel degenerative disc disease with multilevel narrowing of the foramina with nerve root compression. Bright signal in the left L4 pedicle unchanged from previous examination most l ikely hemangioma.
== END 2024-03-15 10:53 ==
PROVIDERS: PCP Emergency Medicine; Visit Provider Emergency Medicine
DX: M21.371 Foot drop, right foot (principal); M51.36 Other intervertebral disc degeneration, lumbar region
CPT/HCPCS: 70486; 72148

== ENCOUNTER 2024-07-20 09:38 | Outpatient (CLI) | payer OTHER, SELFPAY ==
--- NOTE | 2024-07-20 09:58 | ECG_ITS ---
Test Date: 2024-07-20 10:14:09 Measurements Intervals [place] Rate: 49 P: 5 [place]: 202 QRS: -37 QRSD: 134 T: 29 QT: 419 QTc: 382 Interpretive Statements SINUS BRADYCARDIA LEFT AXIS DEVIATION [QRS AXIS < -30] INTRAVENTRICULAR CONDUCTION DELAY [130+ ms QRS DURATION] POSSIBLE LEFT VENTRICULAR HYPERTROPHY [VOLTAGE CRITERIA PLUS LAE OR QRS WIDENING] No previous ECG available for comparison Electronically Signed On 07-20-2024 12:55:18 GUEST EXPERIENCE MANAGER by Lulu Muse M.D.
== END 2024-07-20 09:39 | disposition home or self-care (01) ==
PROVIDERS: PCP Emergency Medicine; Visit Provider Emergency Medicine
DX: Z01.818 Encounter for other preprocedural examination (principal); R94.31 Abnormal electrocardiogram [ECG] [EKG]
CPT/HCPCS: 93005

== ENCOUNTER 2024-09-28 14:04 | Outpatient (CLI) | payer OTHER, SELFPAY ==
--- NOTE | ~2024-09-28 | CT_ITS ---
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 The dose-length product was 757.49 mGy-cm. Maximum intensity projection 3D-re constructions of the aorta and other arteries were constructed by the technologist on a separate work station. COMPARISON: None. FINDINGS/OBSERVATIONS: PULMONARY ARTERIES: No filling defect is identified within the main or proximal pulmonary artery. The main pulmonary artery is not enlarged. THORACIC AORTA: No aneurysmal dilatation is identified within the aortic root and the ascending aorta . The aortic root measures 45 x 46 mm (anterior-posterior by medial to lateral). The ascending aorta measures 51 x 49 mm (anterior to posterior and medial to lateral). The aorta at the level of the aortic arch measures 33 x 26 mm. The descending thoracic aorta measures 28 x 27 mm and then tapers to 25 x 26 mm just before it enters the diaphragmatic hiatus. LUNGS: The bilateral lung pollard are clear. MEDIASTINUM: No morphologically suspicious or pathologically enlarged lymph nodes are identified with in the mediastinum or bilateral axilla. BONES OF THE CHEST: No acute fracture. No significant degenerative disease. No lytic or blastic lesions. HEART: The heart is of normal size, without pericardial effusion. IMPRESSION: No pulmonary embolus. No thoracic aortic dissection. Aneurysmal dilatation of the aortic root and ascending aorta, as detailed above with a maximal anteri or to posterior dimension of 51 mm, which meets criteria for repair in a high risk patient. Reviewed, dictated and finalized at location A. WELL SERVICES DISPATCHER IMPRESSION: No pulmonary embolus. No thoracic aortic dissection. 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
[2024-09-28 14:26] LABS: Estimated Glomerular Filt Rate > 60
== END 2024-09-28 14:05 | disposition home or self-care (01) ==
LOC: MICIMG 14:05
PROVIDERS: PCP Internal Medicine Interventional Cardiology; Visit Provider Internal Medicine Interventional Cardiology
DX: I71.21 Aneurysm of the ascending aorta, without rupture (principal)
CPT/HCPCS: 71275; Q9967

== ENCOUNTER 2025-03-12 13:27 | Outpatient (CLI) | payer MEDICARE, SELFPAY ==
--- NOTE | 2025-03-12 | ECG_ITS ---
Test Date: 2025-03-12 13:59:15 Measurements Intervals [place] Rate: 63 P: 12 [place]: 179 QRS: -45 QRSD: 120 T: 57 QT: 393 QTc: 405 Interpretive Statements SINUS RHYTHM RIGHT VENTRICULAR CONDUCTION DELAY LEFT ANTERIOR FASCICULAR BLOCK VOLTAGE CRITERIA FOR LLEFT VENTRICULAR HYPERTROPHY Electronically Signed On 03-12-2025 17:32:32 CDT by Michael Morrow D.O
--- OUTSIDE RECORDS SUMMARY | 2025-03-12 13:38 | XMS_ITS | Clinical Summary ---
Author Organization [facility] Address [address] [place] [address] Care Team Providers Care Air Transportation Provider Name Role Phone Nicole Stoddard MD Primary Care Provider [phone] Source Comments [facility],non-owned Affiliates and Associated Physician Practices is amultiple site organization consisting of ambulatory clinics and hospital sitesin [place], [place], [place] and [place]. This disclosure is being madepursuant to the Care Everywhere program and may not contain all information available regarding this patient. Last updated 18.[facility] Allergies No known active allergies Medications * Be aware that medications may not be up to date on this document. Alwaysverify current medications with the patient. tadalafil (Cialis) 5 MG tablet Take 1 tablet every day by oral route at bedtime. 4 Active escitalopram (Lexapro) 20 MG tablet Take 1 (one) tablet by mouth once daily Active rosuvastatin (Crestor) 20 MG tablet Take 1 (one) tablet by mouth once daily Active omeprazole (PriLOSEC) 20 MG capsule Take 1 (one) capsule by mouth daily before breakfast Active albuterol HFA (Proventil; Ventolin; Proair) 108 (90 Base) MCG/ACT inhaler Inhale 2 (two) puffs by mouth every 6 hours as needed Active amLODIPine besy-benazepril 10-40 MG Take 1 (one) capsule by mouth once daily 5 Active Breyna 160-4.5 MCG/ACT inhaler Inhale 2 (two) puffs by mouth 2 times daily 5 Active pregabalin (Lyrica) 75 MG capsule Take 1 (one) capsule by mouth 2 times daily 120 capsule 5 Active Additional Information Patient not taking.Reported on 01/08/2025 oxyCODONE-acetami nophen (Percocet) 5-325 MG tabletIndications :Lumbar radiculopathy Take 1 (one) tablet by mouth every 6 hours as needed for Pain 56 tablet 5 Active Additional Information Patient not taking.Reported on 01/08/2025 methocarbamol (Robaxin) 750 MG tablet Take 1 (one) tablet by mouth every 8 hours 42 tablet 5 Active Additional Information Patient not taking.Reported on 01/08/2025 famotidine (Pepcid) 20 MG tablet Take 1 (one) tablet by mouth once daily Active metoprolol succinate XL 24hr (Toprol XL) 50 MG tablet Take 1 (one) tablet by mouth once daily Active Active Problems Problem Noted Date Diagnosed Date Lumbar radiculopathy 10/11/2024 Osteoma of paranasal sinus 07/04/2024 Chronic frontal sinusitis 07/04/2024 Hypertrophy of both inferior nasal turbinates Deviated nasal septum 07/04/2024 Chronic ethmoidal sinusitis 07/04/2024 Anxiety 03/18/2016 Benign hypertension 03/18/2016 Buerger's disease 02/18/2015 Overview (02/18/2015): 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 Quit smoking one week ago. Encounters Date Type Department Care Team Description 03/05/2025 Telephone [facility] - Centralized Scheduling [address] [place] [id number] Ivan Howell MD Appointment 01/08/2025 9:15 AM CDT Office Visit [facility] - Neurosurgery [address] [facility] [place] [phone] Ivan Howell MD S/P lumbar fusion (Primary Dx); Spinal stenosis of lumbar region with neurogenic claudication 01/08/2025 Travel from Last 3 Months Immunizations Immunization Administration Dates Next Due TDAP, HISTORIC VACCINE 09/07/2022 Family History Medical History Relation Name Comments CAD (Coronary Artery Disease) Father Diabetes Mother Relation Name Status Comments Father Mother Social History Tobacco Use Types Packs/Day Years Used Date Smoking Tobacco: Former Cigarettes Q uit: 02/2024 Smokeless Tobacco: Never Tobacco Cessation:Counseling Given: No Comments:Smoke 1 pack a day for 20yrs Alcohol Use Standard Drinks/Week Comments Yes 0 (1 standard drink = 0.6 oz pur e alcohol) 1-2 beers per month (social) AUDIT-C Answer Date Recorded Q1: How often do you have a drink containing alcohol? Never 10/11/2024 Q2: How many drinks containi ng alcohol do you have on a typical day when you are drinking? Patient does not drink Q3: How often do you have si x or more drinks on one occasion? Never 10/11/2024 Overall Financial Resource Strain (CARDIA) Answe r Date Recorded How hard is it for you to pa y for the very basics like food, housing, medical care, and heating? Not hard at all 10/12/2024 PHQ-2 Answer Date Recorded Patient Health Questionnaire-2 Score 0 10/11/2024 [facility] [place] [facility] - Occupational Stress Questionnaire Answer Date Recorded Do you feel stress - tense, restless, nervous, or anxious, or unable to sleep at night because your mind is troubled all the time - these days? Not at all 10/12/2024 Hunger Vital Sign Answer Date Recorded Within the past 12 months, y ou worried that your food would run out before you got the money to buy more. Never true 10/12/19 25 Within the past 12 months, t he food you bought just didn't last and you didn't have money to get more. Never true 10/12/2024 PRAPARE - Transportation Answer Date Re corded In the past 12 months, has l ack of transportation kept you from medical appointments or from getting medications? No 09/16 In the past 12 months, has l ack of transportation kept you from meetings, work, or from getting things needed for daily living? No 10/12/2024 Housing Stability Vital Sign Answer Jeff e Recorded In the last 12 months, was t here a time when you were not able to pay the mortgage or rent on time? No 10/12/2024 In the past 12 months, how m any times have you moved where you were living? 0 10/12/2024 At any time in the past [address] [facility], were you homeless or living in a halfway (including now)? 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 Not on file Not on file Not on file Last Filed Vital Signs Vital Sign Reading Time Taken Comments Blood Pressure 118/79 01/08/2025 9:14 AM CDT Pulse 62 01/08/2025 9:14 AM CDT Temperature 36.7 C (98.1 F) 01/08/2025 9:14 AM CDT Respiratory Rate 18 10/14/2024 8:17 AM MACHINE LACER Oxygen Saturation 94% 01/08/2025 9:14 AM CDT Inhaled Oxygen Concentration - - Weight 102.5 kg (226 lb) 01/08/2025 9:14 AM CDT Height 180.3 cm (5' 11) 01/08/2025 9:14 AM CDT Body Mass Index 31.52 01/08/2025 9:14 AM CDT Plan of Treatment Upcoming Encounters Date Type Department Care Team (Late st Contact Info) Description 03/19/2025 1:45 PM CDT Office Visit [facility] - Neurosurgery [address] [place] [address], [place] [phone] Ivan Howell MD [address] [place] [address] [place] [address] Health Maintenance Due Date Last Done Comments COLOGUARD (AGES 45-75) - COLON CA SCREENING 1960 COLON MONITORING 1960 COLONOSCOPY - COLON CA SCREENING 1960 CT COLONOGRAPHY - COLON CA SCREENING 1960 Colorectal Cancer Screening 1960 FIT - COLON CA SCREENING 1960 FLEX SIG - COLON CA SCREENING 1960 HIV SCREENING 02/09/1975 PNEUMOCOCCAL VACCINE 50+ (1 of 1 - PCV) 02/09/2010 ZOSTER VACCINE (1 of 2) 02/09/2010 COVID-19 VACCINE (3 - season) 2024 11/23/2020, 10/28/2020 MEDICARE AWV CALENDAR YEAR 2024 AAA SCREENING 02/09/2025 INFLUENZA VACCINE (#1) 2025 SCREENING FOR DIABETES 10/15/2027 , 10/13/2024, 10/12/2024, Additional history exists DTAP/TDAP/TD VACCINES (2 - Td or Tdap) 09/07/2032 09/07/2022 Respiratory Syncytial Virus (RSV) Vaccine Pt: or over 60 yrs (1 - 1-dose 75+ series) 02/09/2035 HEPATITIS C SCREENING Completed 02/18/2015 DEPRESSION SCREENING Completed 11/01/2024, 08/06/20 HEPATITIS B VACCINE Aged Out No longe r eligible based on patient's age to complete this topic HIB VACCINE Aged Out No longer eligi ble based on patient's age to complete this topic HPV VACCINE Aged Out No longer eligi ble based on patient's age to complete this topic MENINGOCOCCAL (Group B) VACCINE SHARED DECISION-MAKING Aged Out No longer eligible based on patient's age to complete this topic MENINGOCOCCAL GROUPS A/C/Y/W VACCINE Aged Out No longer eligible based on patient's age to complete this topic Medical Devices Implanted Type Area Conference Center Manager Device Identifier Shelf Expiration Date Model / Serial / Lot Screw Set Ti Spnl Brk Off Cd Hzn Nonster - Sna Implanted:Qt y: 4 on 10/11/2024 by Ivan Howell MD at [facility] N/A: Spine Lumbar [employer] [id number] / NA / NA Screw 7.5mm 55mm Ma Spne Solera Cd Hzn - Sna Implanted:Qt y: 2 on 10/11/2024 by Ivan Howell MD at [facility] N/A: Spine Lumbar [employer] [id number] / NA / NA Screw 7.5mm 50mm Ma Spne Solera Cd Hzn - Sna Implanted:Qt y: 2 on 10/11/2024 by Ivan Howell MD at [facility] N/A: Spine Lumbar [employer] Inc [id number] / NA / NA Spcr Spnl 9mm Catal[address] Pl Lng - Sna Implanted:Qt y: 1 on 10/11/2024 by Ivan Howell MD at [facility] N/A: Spine Lumbar Medtronic [employer] Spine [id number] 03/08/2032 [id number] / NA / [id number] Description:L4-5 Seal Dural Auto Spr Ext Tip 5ml - Sna Implanted:Qt y: 1 on 10/11/2024 by Ivan Howell MD at [facility] N/A: Spine Lumbar [place] [employer] [id number] 06/14/2026 [id number] / NA / [id number] Graft Tissue Drgn + Bvn Clgn Mtrx 2x2in - Sna Implanted:Qt y: 1 on 10/11/2024 by Ivan Howell MD at [facility] N/A: Spine Lumbar [employer] [id number] 03/14/2027 [id number] / NA / [id number] Agustín Spnl 40mm 5.5mm Cd Hzn Crv Ti Cp4 - Sna Implanted:Qt y: 2 on 10/11/2024 by Ivan Howell MD at [facility] N/A: Spine Lumbar [employer] Inc [id number] / NA / NA Procedures Procedure Name Priority Date/Time Associated Diagnosis Comments BASIC METABOLIC PANEL (CALCIUM TOTAL) Routine 10/14/2024 3:31 AM MACHINE LACER HEPATITIS C ANTIBODY Routine 02/18/2015 10:42 AM CDT Buerger's disease from Last 3 Months or Most Recently Relevant to Health Maintenance Results * (ABNORMAL) BASIC METABOLIC PANEL (CALCIUM TOTAL) (10/14/2024 3:31 AM MACHINE LACER) BUN 27(H) 7 - 26 mg/dL 10/14/2024 4:54 AM [facility] Creatinine 0.94 0.71 - 1.16 mg/dL 10/14/2024 4:54 AM [facility] Sodium 138 136 - 145 mmol/L 10/14/2024 4:54 AM [facility] Potassium 4.2 3.5 - 4.5 mmol/L 10/14/2024 4:54 AM [facility] Chloride 105 98 - 107 mmol/L 10/14/2024 4:54 AM [facility] CO2 24 22 - 29 mmol/L 10/14/2024 4:54 AM [facility] Glucose 126(H) 70 - 99 mg/dL 10/14/2024 4:54 AM [facility] Calcium 9.1 8.4 - 10.2 mg/dL 10/14/2024 4:54 AM [facility] Anion Gap 9 6 - 16 10/14/2024 4:54 AM [facility] BUN/Creatinine Ratio 29(H) 7 - 23 10/14/2024 4:54 AM [facility] Osmolality Calculated 293 275 - 295 mOsm/kg 10/14/2024 4:54 AM [facility] eGFR by CKD-EPI >90 >=90 mL/min/1.7 3 m2 10/14/2024 4:54 AM [facility] Blood BLOOD SPECIMEN / Unknown Lab Venipuncture / Unknown 10/14/2024 3:31 AM MACHINE LACER 10/14/2024 4:23 AM [facility] us Ivan Howell MD LAB - CHEMISTRY ORDERABLES F inal Result [address] [phone], [facility] [phone] * HEPATITIS C ANTIBODY (02/18/2015 10:42 AM CDT) Hepatitis C Antibody 0.1 0.0 - 0.9 s/co ratio [facility] ACCOUNT BILL Comment: Negative: < 0.8 Indeterminate: 0.8 - 0.9 Positive: > 0.9 . In order to reduce the incidence of a false positive result, the CDC recommends that all s/co ratios between 1.0 and 10.9 be confirmed by a more specific supplemental or PCR testing. [facility] offers HCV Ab w/Reflex to Verification test #[id number]. Blood specimen (specimen) BLOOD SPECIMEN / Unknown 02/18/2015 10:42 AM CDT 02/18/2015 1:03 PM CDT Narrative Resulting Agency Comment [facility] [address] [facility] [phone] Lamonte Gardner MD LAB - CHEMISTRY ORDERABLES Amanda marsha Result [facility] ACCOUNT BILL [address] [place] [address] from Last 3 Months or Most Recently Relevant to Health Maintenance Insurance [facility] MANAGED MEDICARE ADV Advance Directives * Full Code (Latest Code Status on File) Date Activated Date Inactivated Comments 10/11/2024 1:42 PM 10/14/2024 12:09 PM * Full Code Date Activated Date Inactivated Comments 02/25/2015 2:38 PM 02/25/2015 4:45 PM Care Teams Air Transportation Provider Relationship Specialty [place] [address] [place] [phone] PCP - General Emergency Medicine 10/11/24
--- OUTSIDE RECORDS SUMMARY | 2025-03-12 13:38 | XMS_ITS | Referral Summary ---
Author Organization [facility] Address [facility] [place] [address] Care Team Providers Care Retail Sales Director Name Role Phone Nicole Stoddard MD Primary Care Provider [phone] Allergies No known active allergies Medications albuterol HFA (PROVENTIL HFA,VENTOLIN HFA,PROAIR HFA) 90 mcg/actuation inhaler Inhale 2 puffs every 6 (six) hours as needed Active amLODIPine-daljit zepriL (LOTREL) 10-40 mg per capsule Take 1 capsule by mouth daily 5 Active amLODIPine-daljit zepriL (LOTREL 5-10) 5-10 mg per capsule Take by mouth daily 4 Active Breyna 160-4.5 mcg/actuation inhaler Inhale 2 puffs 2 (two) times a day 5 Active escitalopram (LEXAPRO) 20 mg tablet Take 1 tablet (20 mg total) by mouth daily Active famotidine (PEPCID) 20 mg tablet Take 1 tablet (20 mg total) by mouth daily Active methocarbamoL (ROBAXIN) 750 mg tablet Take 1 tablet (750 mg total) by mouth every 8 (eight) hours 5 Active omeprazole (PriLOSEC) 20 mg capsule Take 1 capsule (20 mg total) by mouth daily before breakfast Active tadalafiL (CIALIS) 5 mg tablet Take 1 tablet every day by oral route at bedtime. 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 Quit smoking one week ago. 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 Gender Identity Not on file Sexual Orientation Not on file Last Filed Vital Signs Vital Sign Reading Time Taken Comments Blood Pressure 119/72 11/09/2024 9:16 AM CDT Pulse 76 11/09/2024 9:16 AM CDT Temperature - - Respiratory Rate 18 11/09/2024 9:16 AM CDT Oxygen Saturation 96% 11/09/2024 9:16 AM CDT Inhaled Oxygen Concentration - - Weight 108.9 kg (240 lb) 11/09/2024 9:16 AM CDT Height 180.3 cm (5' 11) 11/09/2024 9:16 AM CDT Body Mass Index 33.47 11/09/2024 9:16 AM CDT Plan of Treatment Not on file Insurance [facility] CHOICE [facility]US [facility] H[facility]/PPO Address: [facility] [id number] [place] [address] Care Teams Retail Sales Director Relationship Specialty [place] [address] [place] [address] PCP - General Emergency Medicine 11/09/24
--- OUTSIDE RECORDS SUMMARY | 2025-03-12 13:38 | XMS_ITS | Clinical Summary ---
Author Organization [facility] Address [address] [place] [address] Care Team Providers Care Contracts Law Professor Name Role Phone Nicole Stoddard MD Primary Care Provider [phone] Allergies No known active allergies Medications metoprolol succinate ER (TOPROL-XL) 50 MG 24 hr tablet Take 1 tablet (50 mg total) by mouth daily. Active clobetasol (TEMOVATE) 0.05 % cream Apply topically 2 (two) times daily. 4 Active famotidine (PEPCID) 20 MG tablet Take 1 tablet (20 mg total) by mouth 2 (two) times daily. Active albuterol sulfate HFA 108 (90 Base) MCG/ACT inhaler Inhale 2 puffs into the lungs 4 (four) times daily as needed. Active escitalopram (LEXAPRO) 20 MG tablet Take 1 tablet (20 mg total) by mouth daily. 5 Active rosuvastatin (CRESTOR) 20 MG tablet Take 1 tablet (20 mg total) by mouth daily. Active omeprazole EC (PRILOSEC OTC) 20 MG tablet Take 1 tablet (20 mg total) by mouth daily. Active tadalafil (CIALIS) 5 MG tablet Take 1 tablet (5 mg total) by mouth nightly at bedtime. 4 Active budesonide-form oterol (BREYNA) 160-4.5 MCG/ACT inhaler Inhale 2 puffs into the lungs 2 (two) times daily. 5 Active amLODIPine Besy-Benazepril HCl 10-40 MG Cap Take 1 capsule by mouth daily. 5 Active Active Problems No known active problems Encounters Date Type Department Care Team Description 12/27/2024 10:15 AM CDT [facility] [address] [place] [address] Josemanuel Walsh MD Establish Care 12/27/2024 Travel from Last 3 Months Family History Medical History Relation Comments CABG Father Heart Disease Father Diabetes Mother Relation Status Comments Father Mother Social History Tobacco Use Types Packs/Day Years Used Date Smoking Tobacco: Every Day Cigarettes 0.5 43.6 Started: 1981 Passive Smoke Exposure: Current Smokeless Tobacco: Never Tobacco Cessation:Ready to Q uit: No; Counseling Given: No Sex and Gender Information Value Date Recorded Sex Assigned at Male 11/13/2024 1:53 PM CDT Legal Sex Male 2:33 PM SENIOR RUBY DEVELOPER Gender Identity Not on file Sexual Orientation Not on file Last Filed Vital Signs Vital Sign Reading Time Taken Comments Blood Pressure 138/80 12/27/2024 10:33 AM CDT Pulse 78 12/27/2024 10:33 AM CDT Temperature 36.2 C (97.1 F) 12/27/2024 10:33 AM CDT Respiratory Rate 20 12/27/2024 10:33 AM CDT Oxygen Saturation 96% 12/27/2024 10:33 AM CDT Inhaled Oxygen Concentration - - Weight 102.1 kg (225 lb) 12/27/2024 10:33 AM CDT Height 180.3 cm (5' 11) 12/27/2024 10:33 AM CDT Body Mass Index 31.38 12/27/2024 10:33 AM CDT Plan of Treatment Upcoming Encounters Date Type Department Care Team (Late st Contact Info) Description 07/01/2025 3:30 PM SENIOR RUBY DEVELOPER Appointment [facility] [place] [address] Josemanuel Walsh MD [address] [facility] [address] [place] [id number] 07/18/2025 12:00 PM SENIOR RUBY DEVELOPER Office Visit [facility], [address] [place] [address] Josemanuel Walsh MD [address] [facility] [address] [place] [address] Health Maintenance Due Date Last Done Comments Colorectal Cancer Screening Colonoscopy (10 Years) 1960 Pneumococcal Vaccine: 50+ Years (1 of 2 - PCV) 02/09/1979 Lung Cancer Screening 02/09/2010 Zoster Vaccines (1 of 2) 02/09/2010 COVID-19 Vaccine (3 - 2023-2 5 season) 2024 11/23/2020, 10/28/2020 AAA SCREENING 02/09/2025 DTaP, Tdap and Td Vaccines ( 2 - Td or Tdap) 09/07/2032 09/07/2022 RSV Immunization or 60+ Years (1 - 1-dose 75+ series) 02/09/2035 Hepatitis C Completed 02/18/2015 Meningococcal B Vaccine Aged Out No l onger eligible based on patient's age to complete this topic Meningococcal Vaccine Aged Out No rimma arianna eligible based on patient's age to complete this topic RSV Immunizations Under 20 Months Aged Out No longer eligible b ased on patient's age to complete this topic Insurance [facility] Care Teams Contracts Law Professor Relationship Specialty [place] [address] [place] [id number] PCP - General EMERGENCY MEDICINE 10/16/24
--- OUTSIDE RECORDS SUMMARY | 2025-03-12 13:38 | XMS_ITS | Clinical Summary ---
Author Organization [facility] Address [facility] [place] [address] Care Team Providers Care Fixture Builder Name Role Phone Nicole Stoddard MD Primary Care Provider [phone] Allergies No known active allergies Medications albuterol [...] right hand. Quit smoking one week ago. Surgical History Surgery Date Site/Laterality Comments BACK SURGERY 10/11/2024 Fusion L4-L5 ESOPHAGEAL DILATION 11/14/2023 - 12/13/2023 COLONOSCOPY Social History Tobacco Use Types Packs/Day Years Used Date Smoking Tobacco: Former Cigarettes Q uit: 06/2024 Tobacco Cessation:Counseling Given: Not Answered Sex and Gender Information Value Date Recorded Sex Assigned at Not on file Legal Sex Male 3:39 AM PRODUCT DEVELOPMENT CONSULTANT Gender Identity Not on file Sexual Orientation Not on file Obstetrics History Last Filed Vital Signs Vital Sign Reading [...] 11/09/2024 9:16 AM CDT Plan of Treatment Health Maintenance Due Date Last Done Comments Colon Cancer Screening-Colonoscopy 1960 Depression Screening 1960 Fall Risk Assessment 1960 Hepatitis C Screening 1960 Prostate Cancer Screening-PSA 1960 Hepatitis B Screening 02/09/1978 Pneumococcal vaccine 65+ (1 of 2 - PCV) 02/09/1979 Zoster Vaccine (1 of 2) 02/09/2010 Covid-19 Vaccine (3 - season) 04/15/202406/2021, 10/28/2020 Abdominal Aortic Aneurysm (AAA) Screen 02/09/2025 Well Visit 65+ 02/09/2025 Influenza Vaccine (#1) 2025 DTaP/Tdap/Td Vaccine (2 - Td or Tdap) 09/07/2032 Insurance [facility]PPO Address: [place] [address] Care Teams Fixture Builder Relationship Specialty Start Date End Date Nicole Stoddard MD [address] [place] [address] PCP - General Emergency Medicine 11/09/24
--- OUTSIDE RECORDS SUMMARY | 2025-03-12 13:38 | XMS_ITS | Data Portability ---
Author Organization [facility] Address [address] [place] [address] Care Team Providers Care System Configuration Specialist Name Role Phone NICOLE STODDARD Primary Care Provider Assessment Encounter Date Assessment Date Assessment LastModified by Organization Details LastModified Time 09/20/2024 09/20/2024 Labs completed o n 08/23/2024 Cholesterol 95, Trig 55, HDL 37, LDL 45, Glucose 103, BUN 19, Creatinine 0.90, eGFR 95, Sodium 141, Potassium 4.6, Chloride 103, Co2 26, Calcium 9.4, Protein 7.1, Albumin 4.6, Bilirubin 0.7, Alkphos 105, AST 29, ALT 33 Labs completed 07/17/2024 WBC 8.8, Hgb 17.2, Hct 49.9, Plt 224, Glucose 98, BUN 15, Creatinine 0.92, Sodium 140, Potassium 4.5, Chloride 103, Co2 24, Calcium 9.6, Protein 6.8, Albumin 4.5, Bilirubin 0.7, Alk phos 96, AST 26, ALT 32, Cholesterol 96, Triglycerides 65, HDL 40, LDL 42 EKG performed on 07/20/2024 which showed sinus bradycardia rate of 49 beats per minute with first-degree AV block left axis deviation intraventricular conduction delay and LVH. ASSESSMENT Preoperative cardiac evaluation prior to after spine fusion schedule very twenty-2024 and then we will require sinus surgery. He had a Lexiscan Myoview stress test which was normal and an echocardiogram showed normal LV systolic function. He has no cardiac contraindications to procedures. Aortic root dilation measuring 3.78 cm and [id number] ascending aortic dilation measuring 4.29 cm. Dyspnea on exertion walking up steps and bending down with a normal Lexiscan Myoview stress test on 09/11/2024 Abnormal EKG with intraventricular conduction delay LVH left axis deviation and sinus bradycardia with first-degree AV block with a normal Lexiscan Myoview stress test done on 09/03/2024 Bradycardia likely secondary to his clonidine, resolved off clonidine. Essential hypertension on amlodipine/benazepril 10/20 mg daily with blood pressure suboptimally controlled particularly for a patient who has a known history of ascending aortic aneurysm. Pure hypercholesterolemia on rosuvastatin 20 mg daily with lipids at goal Snoring had home sleep study a couple of years ago but never heard the results have a sleep study on November [address] Campuzano Ex-smoker quit in June of 2024, prior to that smoked about a 1.5 packs per day for about 20 years Chronic lower back pain with footdrop status post spinal fusion fusion on 10/11/2024 at [facility] History right lower extremity DVT about 2 years ago completed a course of anticoagulation PLAN: I recommend fat, low-cholesterol diet. In light of his blood pressure being suboptimal particularly with a known history of of mild thoracic aortic aneurysm I would like his blood pressure tightly controlled I will increase the amlodipine/benazepril from 10/20 mg to 10/40 mg daily. I will also get a CTA of his chest evaluate his thoracic aorta in light of the very proximal portion of the of the ascending aorta being dilated at about 4.29 cm I can not visualize the entire aorta with the echocardiogram as a CT scan can do. He has no cardiac contraindication to undergoing his spinal fusion and sinus surgery. I would like him to get a basic metabolic profile in about 2 weeks after increasing the dose of his amlodipine/benazepril. I will continue his rosuvastatin at 20 mg daily. I would like him to return in 3 months' time for re-evaluation. I asked him to return sooner if he has any cardiac issues or problems CARDIAC TESTING ECHOCARDIOGRAM 09/10/2024 Mildly dilated left atrium. Normal left ventricular size and systolic function. Mild concentric left ventricular hypertrophy. LV ejection fraction visually 55-60%. Left ventricular diastolic parameters consistent with Grade 1 diastolic dysfunction. The average global longitudinal strain rate is borderline at -17.4%. Total wall motion score is 1.00. There are no regional wall abnormalities. Normal right ventricular size and systolic function. Aortic cusps appear mildly calcified. There is no evidence of aortic valve stenosis. Trace tricuspid regurgitation. Unable to calculate RVSP due to insufficient tricuspid regurgitant jet. There is mild aortic root dilation measuring 3.78 cm in diameter. there is mild to moderate ascending aorta dilation 4.29 cm in diameter in the very proximal ascending aorta. The IVC was <2.1 cm and collapsibility >50%. The RA pressure is estimated to be 3mmHg LEXISCAN STRESS TEST 09/11/2024 No evidence of ischemia or infarction of the left ventricle. Normal left ventricular cavity size, wall motion, TID index and calculated left ventricular systolic ejection fraction of 57%. No regadenoson induced ischemic EKG changes. No arrhythmias. Study was fairly tolerated with just mild transient shortness of breath. Not available 09/20/2024 17:26:51 11/16/2024 11/16/[address] technician nician regarding CTA done in September. His specialist was suggesting that he get a LDCT. The nuclear medicine technician said there was not a need for that because the CTA showed his lungs and there was no evidence of any nodules or disease. I communicated this to the patient. [email or web address] Not available 11/19/2024 18:20:46 12/20/2024 12/20/2024 Labs completed o n 10/14/2024 WBC 12.4, Hgb 13.3, Platelets 203, BUN 27, Creatinine 0.94, Sodium 138, Potassium 4.2, Chloride 105, Co2 24, Glucose 1026, Calcium 9.1 Labs completed on 08/23/2024 Cholesterol 95, Trig 55, HDL 37, LDL 45, Glucose 103, BUN 19, Creatinine 0.90, eGFR 95, Sodium 141, Potassium 4.6, Chloride 103, Co2 26, Calcium 9.4, Protein 7.1, Albumin 4.6, Bilirubin 0.7, Alkphos 105, AST 29, ALT 33 Labs completed 07/17/2024 WBC 8.8, Hgb 17.2, Hct 49.9, Plt 224, Glucose 98, BUN 15, Creatinine 0.92, Sodium 140, Potassium 4.5, Chloride 103, Co2 24, Calcium 9.6, Protein 6.8, Albumin 4.5, Bilirubin 0.7, Alk phos 96, AST 26, ALT 32, Cholesterol 96, Triglycerides 65, HDL 40, LDL 42 EKG performed on 07/20/2024 which showed sinus bradycardia rate of 49 beats per minute with first-degree AV block left axis deviation intraventricular conduction delay and LVH. ASSESSMENT Aortic root dilation measuring 3.78 cm and [id number] ascending aortic dilation measuring 4.29 cm, scheduled to see Cardiothoracic surgery to monitor aorta Dyspnea on exertion walking up steps and bending down with a normal Lexiscan Myoview stress test on 09/11/2024 , now resolved Abnormal EKG with intraventricular conduction delay LVH left axis deviation and sinus bradycardia with first-degree AV block with a normal Lexiscan Myoview stress test done on 09/03/2024 Bradycardia likely secondary to his clonidine, resolved off clonidine with improvement in his stamina in fatigue. Essential hypertension on amlodipine/benazepril 10/40 mg daily, well-controlled need tight blood pressure control in light of his thoracic aortic dilation. Pure hypercholesterolemia on rosuvastatin 20 mg daily with lipids at goal Snoring had home sleep study a couple of years ago but never heard the results have a sleep study on November [address] Campuzano Ex-smoker quit in June of 2024, prior to that smoked about a 1.5 packs per day for about 20 years Chronic lower back pain with footdrop status post spinal fusion fusion on 10/11/2024 at [facility] History right lower extremity DVT about 2 years ago completed a course of anticoagulation PLAN: I recommend fat, low-cholesterol diet. He does have some prerenal azotemia. I asked him to increase his fluid intake. He is scheduled to see Cardiothoracic surgery [facility] to follow his thoracic aneurysm. I asked him to try to stay as active as possible and try to exercise regularly. I will continue his amlodipine/benazepril 10/40 mg daily and rosuvastatin at 20 mg daily. I asked him return in 6 months' time and obtain a fasting lipid profile, complete metabolic profile prior to his follow-up visit. I asked him to return sooner if he has any cardiac issues or problems CARDIAC TESTING ECHOCARDIOGRAM 09/10/2024 Mildly dilated left atrium. Normal left ventricular size and systolic function. Mild concentric left ventricular hypertrophy. LV ejection fraction visually 55-60%. Left ventricular diastolic parameters consistent with Grade 1 diastolic dysfunction. The average global longitudinal strain rate is borderline at -17.4%. Total wall motion score is 1.00. There are no regional wall abnormalities. Normal right ventricular size and systolic function. Aortic cusps appear mildly calcified. There is no evidence of aortic valve stenosis. Trace tricuspid regurgitation. Unable to calculate RVSP due to insufficient tricuspid regurgitant jet. There is mild aortic root dilation measuring 3.78 cm in diameter. there is mild to moderate ascending aorta dilation 4.29 cm in diameter in the very proximal ascending aorta. The IVC was <2.1 cm and collapsibility >50%. The RA pressure is estimated to be 3mmHg LEXISCAN STRESS TEST 09/11/2024 No evidence of ischemia or infarction of the left ventricle. Normal left ventricular cavity size, wall motion, TID index and calculated left ventricular systolic ejection fraction of 57%. No regadenoson induced ischemic EKG changes. No arrhythmias. Study was fairly tolerated with just mild transient shortness of breath. CTA 09/28/2024: No pulmonary embolus. No thoracic aortic dissection. Aneurysmal dilatation of hte aoric root and ascending aorta, as detailed above with a max dimension of 51 mm, which meets criteria for repair in a high risk patient. Not available 12/20/2024 16:00:15 Plan of Treatment Reminders Order Date Submit Date Provider Last Modified By Organization Details Last Modified Time Details Appointments ANY 30 2024 01:15P Preeti Stoddard MD Not available Not available Not available ANY 15 2024 03:30P Preeti Cano MD Not available Not available Not available Lab lipid panel, serum 2024 025 [facility] [address] [place], [address], 12/20/2024 16:02:20 CMP, serum or plasma 2024 025 [facility] (), [address] [place], [address], 12/20/2024 16:02:20 albumin/ creatini ne, mass ratio, urine 2024 025 [facility] (Lab), [address] [place], [address], 12/28/2024 13:28:07 CBC w/ auto diff 2024 025 [facility] (Lab), [address], [place], [address], 12/28/2024 06:50:28 CMP, serum or plasma 2024 025 [facility] (Lab), [address], [place], [address], 12/28/2024 06:50:26 hemoglob in A1C/hemo globin total, QN, blood 2024 025 [email or web address] [facility] (Lab), [address], [place], [address], 02/11/2025 10:06:24 BMP, serum or plasma 2024 025 [email or web address] [facility] (Lab), [address], [place], [address], 10/25/2024 07:32:28 Referral None recorded . Procedures None recorded . Surgeries None recorded . Imaging CT, angiogra m, chest, w/ contrast 2024 025 [facility], [address], [place], [address], 09/29/2024 08:24:12 Medication Orders rosuvast atin 20 mg tablet 2024 025 [id number], [address], [place], [place], [id number], 11/16/2024 13:29:50 tadalafi l 5 mg tablet 2024 025 [facility] #[id number], [address], [place], [place], [id number], 11/16/2024 13:29:52 amlodipi ne 10 mg-benaz epril 40 mg capsule 2024 025 [facility] #[id number], [address], [place], [place], [id number], 11/16/2024 13:29:53 albutero l sulfate HFA 90 mcg/actu ation aerosol inhaler 2024 025 [facility] #[id number], [address], [place], [place], [id number], 11/16/2024 13:29:59 escitalo pram 20 mg tablet 2024 025 [facility] #[id number], [address], [place], [place], [id number], 11/16/2024 13:30:00 rosuvast atin 20 mg tablet 2024 025 [facility] #[id number], [address], [place], [place], [id number], 10/02/2024 10:35:17 tadalafi l 5 mg tablet 2024 025 [facility], [address] [place] [address], [id number], 02/27/2025 13:46:43 Pepcid 20 mg tablet 2024 025 [facility] #[id number], [address], [place], [place], [id number], 11/16/2024 12:27:22 amlodipi ne 10 mg-benaz epril 40 mg capsule 2024 025 [facility] #[id number], [address], [place], [place], [id number], 10/02/2024 10:35:18 escitalo pram 20 mg tablet 2024 025 [facility] #48051, [address], [place], [place], [id number], 10/02/2024 10:35:15 Breyna 160 mcg-4.5 mcg/actu ation HFA aerosol inhaler 2024 025 [facility] #50107, [address], [place], [place], [id number], 10/02/2024 10:35:16 albutero l sulfate HFA 90 mcg/actu ation aerosol inhaler 2024 025 [facility] #91045, [address] , [place], [place], [id number], 10/02/2024 10:35:18 amlodipi ne 10 mg-benaz epril 40 mg capsule 2024 025 [facility] #49120, [address], [place], [place], [id number], 09/20/2024 17:26:59 Patient TargetsNo targets recorded. Patient Instructions Encounter Date Encounter Id Patient Instructions Last Modified By Organization Details Last Modified Time 12/20/2024 [id number] A healthy lifestyle: care instructions Not available 12/20/2024 16:02:20 Reason for Referral None Reported. Results Created Date Observation Date Name Description Value Unit Range Abnormal Flag Note LastModifiedBy Organization Detail LastModifiedTime 08/23/1908/24/2024 LIPID PANEL cholesterol, total 95 mg/dL 100-19 9 below low normal Not Available [facility] ([facility]) [address], [place], [address], 08/24/2024 06:17:07 08/23/1908/24/2024 LIPID PANEL triglyceride s 55 mg/dL 0-149 Not Available [facility] ([facility]) [address] [place], [address], 08/24/2024 06:17:07 08/23/1908/24/2024 LIPID PANEL HDL cholesterol 37 mg/dL >39 below low normal Not Available [facility] ([facility]) [address] [place], [address], 08/24/2024 06:17:07 08/23/1908/24/2024 LIPID PANEL VLDL cholesterol neil 13 mg/dL 5-40 Not Available [facility] ([facility]) [address] [place], [address], 08/24/2024 06:17:07 08/23/1908/24/2024 LIPID PANEL LDL chol calc ([facility]) 45 mg/dL 0-99 Not Available [facility] ([facility]) [address] [place], [address], 08/24/2024 06:17:07 08/23/1908/24/2024 HEPAT IC FUNCT ION PANEL (7) protein, total 7.1 g/dL 6.0-8. 5 Not Available [facility] ([facility]) [address] [place], [address], 08/24/2024 06:17:09 08/23/1908/24/2024 HEPAT IC FUNCT ION PANEL (7) albumin 4.6 g/dL 3.9-4. 9 Not Available [facility] ([facility]) [address] [place], [address], 08/24/2024 06:17:09 08/23/1908/24/2024 HEPAT IC FUNCT ION PANEL (7) bilirubin, total 0.7 mg/dL 0.0-1. 2 Not Available [facility] ([facility]) [address] [place], [address], 08/24/2024 06:17:09 08/23/19 25 08/24/2024 HEPAT IC FUNCT ION PANEL (7) bilirubin, direct 0.28 mg/dL 0.00-0 .40 Not Available [facility] ([facility]) [address], [place], [address], 08/24/2024 06:17:09 08/23/19 25 08/24/2024 HEPAT IC FUNCT ION PANEL (7) alkaline phosphatase 105 IU/L 44-121 Not Available [facility] ([facility]) [address] [place], [address], 08/24/2024 06:17:09 08/23/19 25 08/24/2024 HEPAT IC FUNCT ION PANEL (7) AST (SGOT) 29 IU/L 0-40 Not Available [facility] ([facility]) [address] [place], [address], 08/24/2024 06:17:09 08/23/19 25 08/24/2024 HEPAT IC FUNCT ION PANEL (7) ALT (SGPT) 33 IU/L 0-44 Not Available [facility] ([facility]) [address] [place], [address], 08/24/2024 06:17:09 10/01/19 25 10/01/2024 Blood type and Indir ect antib brock scree n panel - Blood blood group antibody screen [presence] in serum or plasma NEG Antib brock Scree n NEG 10/01 10:43 AM [facility] Not Available Not Available 10/02/2024 12:40:09 10/01/19 25 10/01/2024 Blood type and Indir ect antib brock scree n panel - Blood ABO and Rh group [type] in blood B POS ABO Rh B POS 10/01 10:43 AM [facility] Not Available Not Available 10/02/2024 12:40:09 10/11/19 25 10/11/2024 Blood type and Indir ect antib brock scree n panel - Blood blood group antibody screen [presence] in serum or plasma NEG Antib brock Scree n NEG 10/11 7:32 AM [facility] Not Available Not Available 10/11/2024 15:39:39 10/11/1910/11/2024 Blood type and Indir ect antib brock scree n panel - Blood ABO and Rh group [type] in blood B POS ABO Rh B POS 10/11 7:32 AM [facility] Not Available Not Available 10/11/2024 15:39:39 10/12/1910/12/2024 CBC W Auto Diffe renti al panel - Blood leukocytes [#/volume] in blood by automated count 15.6 text: 4.0 - 10.7 x10e9/ L high WBC 15.6 (H) 4.0 - 10.7 x10E9 /L 10/12 2:46 AM [facility] [place] Not Available Not Available 11/01/2024 12:01:55 10/12/19 25 10/12/2024 CBC W Auto Diffe renti al panel - Blood erythrocytes [#/volume] in blood by automated count 4.5 text: 4.30 - 5.80 x10e12 /L RBC Count 4.50 4.30 - 5.80 x10E1 2/L 10/12 2:46 AM [facility] [place] Not Available Not Available 11/01/2024 12:01:55 10/12/19 25 10/12/2024 CBC W Auto Diffe renti al panel - Blood hemoglobin [mass/volume ] in blood 13.2 g/dL low: 13.3g/ dLhigh : 17.5g/ dL low Hemog lobin 13.2 (L) 13.3 - 17.5 g/dL 10/12 2:46 AM [facility] [place] Not Available Not Available 11/01/2024 12:01:55 10/12/19 25 10/12/2024 CBC W Auto Diffe renti al panel - Blood hematocrit [volume fraction] of blood by automated count 39.1 % low: 38.7%h igh: 51.1% Hemat ocrit 39.1 38.7 - 51.1 % 10/12 2:46 AM [facility] [place] Not Available Not Available 11/01/2024 12:01:55 10/12/1910/12/2024 CBC W Auto Diffe renti al panel - Blood MCV [entitic volume] by automated count 86.9 fL low: 80fLhi gh: 98fL MCV 86.9 80.0 - 98.0 fL 10/12 2:46 AM [facility] [place] Not Available Not Available 11/01/2024 12:01:55 10/12/19 25 10/12/2024 CBC W Auto Diffe renti al panel - Blood MCH [entitic mass] by automated count 29.3 pg low: 26.7pg high: 33.6pg MCH 29.3 26.7 - 33.6 pg 10/12 2:46 AM [facility] [place] Not Available Not Available 11/01/2024 12:01:55 10/12/19 25 10/12/2024 CBC W Auto Diffe renti al panel - Blood MCHC [mass/volume ] by automated count 33.8 g/dL low: 31.7g/ dLhigh : 36.3g/ dL MCHC 33.8 31.7 - 36.3 g/dL 10/12 2:46 AM [facility] [place] Not Available Not Available 11/01/2024 12:01:55 10/12/19 25 10/12/2024 CBC W Auto Diffe renti al panel - Blood erythrocyte distribution width [ratio] by automated count 12 % low: 11.3%h igh: 14.8% RDW-C V 12.0 11.3 - 14.8 % 10/12 2:46 AM [facility] [place] Not Available Not Available 11/01/2024 12:01:55 10/12/19 25 10/12/2024 CBC W Auto Diffe renti al panel - Blood platelets [#/volume] in blood by automated count 223 text: 150 - 420 x10e9/ L Plate let Count 223 150 - 420 x10E9 /L 10/12 2:46 AM [facility] [place] Not Available Not Available 11/01/2024 12:01:55 10/12/19 25 10/12/2024 CBC W Auto Diffe renti al panel - Blood platelet mean volume [entitic volume] in blood by automated count 9.6 fL low: 7.8fLh igh: 11.4fL MPV 9.6 7.8 - 11.4 fL 10/12 2:46 AM [facility] [place] Not Available Not Available 11/01/2024 12:01:55 10/12/19 25 10/12/2024 CBC W Auto Diffe renti al panel - Blood neutrophils/ 100 leukocytes in blood by automated count 85.6 % low: 41%hig h: 74% high Neutr ophil % 85.6 (H) 41.0 - 74.0 % 10/12 2:46 AM [facility] [place] Not Available Not Available 11/01/2024 12:01:55 10/12/1910/12/2024 CBC W Auto Diffe renti al panel - Blood lymphocytes/ 100 leukocytes in blood by automated count 7.8 % low: 17%hig h: 47% low Lymph ocyte % 7.8 (L) 17.0 - 47.0 % 10/12 2:46 AM [facility] [place] Not Available Not Available 11/01/2024 12:01:55 10/12/19 25 10/12/2024 CBC W Auto Diffe renti al panel - Blood monocytes/10 0 leukocytes in blood by automated count 5.7 % low: 3%high : 11% Monoc yte % 5.7 3.0 - 11.0 % 10/12 2:46 AM [facility] [place] Not Available Not Available 11/01/2024 12:01:55 10/12/19 25 10/12/2024 CBC W Auto Diffe renti al panel - Blood eosinophils/ 100 leukocytes in blood by automated count 0.1 % low: 0%high : 7% Eosin ophil % 0.1 0.0 - 7.0 % 10/12 2:46 AM [facility] [place] Not Available Not Available 11/01/2024 12:01:55 10/12/19 25 10/12/2024 CBC W Auto Diffe renti al panel - Blood basophils/10 0 leukocytes in blood by automated count 0.2 % low: 0%high : 1.6% Basop hil % 0.2 0.0 - 1.6 % 10/12 2:46 AM [facility] [place] Not Available Not Available 11/01/2024 12:01:55 10/12/19 25 10/12/2024 CBC W Auto Diffe renti al panel - Blood immature granulocytes /100 leukocytes in blood by automated count 0.6 % low: 0%high : 1% Immat ure Granu locyt es % 0.6 0.0 - 1.0 % 10/12 2:46 AM [facility] [place] Not Available Not Available 11/01/2024 12:01:55 10/12/19 25 10/12/2024 CBC W Auto Diffe renti al panel - Blood neutrophils [#/volume] in blood by automated count 13.34 text: 1.60 - 7.50 x10e9/ L high Neutr ophil Absol [place] 13.34 (H) 1.60 - 7.50 x10E9 /L 10/12 2:46 AM [facility] [place] Not Available Not Available 11/01/2024 12:01:55 10/12/19 25 10/12/2024 CBC W Auto Diffe renti al panel - Blood lymphocytes [#/volume] in blood by automated count 1.21 text: 1.00 - 4.40 x10e9/ L Lymph ocyte Absol [place] 1.21 1.00 - 4.40 x10E9 /L 10/12 2:46 AM [facility] [place] Not Available Not Available 11/01/2024 12:01:55 10/12/19 25 10/12/2024 CBC W Auto Diffe renti al panel - Blood monocytes [#/volume] in blood by automated count 0.88 text: 0.15 - 1.00 x10e9/ L Monoc yte Absol [place] 0.88 0.15 - 1.00 x10E9 /L 10/12 2:46 AM [facility] [place] Not Available Not Available 11/01/2024 12:01:55 10/12/19 25 10/12/2024 CBC W Auto Diffe renti al panel - Blood eosinophils [#/volume] in blood 0.01 text: 0.00 - 0.60 x10e9/ L Eosin ophil Absol [place] 0.01 0.00 - 0.60 x10E9 /L 10/12 2:46 AM [facility] [place] Not Available Not Available 11/01/2024 12:01:55 10/12/19 25 10/12/2024 CBC W Auto Diffe renti al panel - Blood basophils [#/volume] in blood by automated count 0.03 text: 0.00 - 0.13 x10e9/ L Basop hil Absol [place] 0.03 0.00 - 0.13 x10E9 /L 10/12 2:46 AM [facility] [place] Not Available Not Available 11/01/2024 12:01:55 10/12/19 25 10/12/2024 CBC W Auto Diffe renti al panel - Blood interpretati on and review of laboratory results Abnorm al Not Available Not Available 12:01:55 10/12/19 25 10/12/2024 Basic metab olic 2000 panel - Serum or Plasm a urea nitrogen [mass/volume ] in serum or plasma 21 mg/dL low: 7mg/dL high: 26mg/d L BUN 21 7 - 26 mg/dL 10/12 3:10 AM [facility] [place] Not Available Not Available 11/01/2024 12:01:55 10/12/19 25 10/12/2024 Basic metab olic 2000 panel - Serum or Plasm a creatinine [mass/volume ] in serum or plasma 0.88 mg/dL low: 0.71mg /dLhig h: 1.16mg /dL Creat inine 0.88 0.71 - 1.16 mg/dL 10/12 3:10 AM [facility] [facility] Not Available Not Available 11/01/2024 12:01:55 10/12/19 25 10/12/2024 Basic metab olic 2000 panel - Serum or Plasm a sodium [moles/volum e] in serum or plasma 137 mmol/ L low: 136mmo l/Lhig h: 145mmo l/L Sodiu m 137 136 - 145 mmol/ L 10/12 3:10 AM [facility] Not Available Not Available 11/01/2024 12:01:55 10/12/19 25 10/12/2024 Basic metab olic 2000 panel - Serum or Plasm a potassium [moles/volum e] in serum or plasma 4.3 mmol/ L low: 3.5mmo l/Lhig h: 4.5mmo l/L Potas sium 4.3 3.5 - 4.5 mmol/ L 10/12 3:10 AM [facility] Not Available Not Available 11/01/2024 12:01:55 10/12/19 25 10/12/2024 Basic metab olic 2000 panel - Serum or Plasm a chloride [moles/volum e] in serum or plasma 106 mmol/ L low: 98mmol /Lhigh : 107mmo l/L Chlor nima 106 98 - 107 mmol/ L 10/12 3:10 AM [facility] [place] Not Available Not Available 11/01/2024 12:01:55 10/12/19 25 10/12/2024 Basic metab olic 2000 panel - Serum or Plasm a carbon dioxide, total [moles/volum e] in serum or plasma 24 mmol/ L low: 22mmol /Lhigh : 29mmol /L CO2 24 22 - 29 mmol/ L 10/12 3:10 AM [facility] Not Available Not Available 11/01/2024 12:01:55 10/12/19 25 10/12/2024 Basic metab olic 2000 panel - Serum or Plasm a glucose [mass/volume ] in serum or plasma 137 mg/dL low: 70mg/d Lhigh: 99mg/d L high Gluco se 137 (H) 70 - 99 mg/dL 10/12 3:10 AM [facility] Not Available Not Available 11/01/2024 12:01:55 02/2810/12/2024 Basic metab olic 1999 panel - Serum or Plasm a calcium [moles/volum e] in serum or plasma 9 mg/dL low: 8.4mg/ dLhigh : 10.2mg /dL Calci um 9.0 8.4 - 10.2 mg/dL 10/12 3:10 AM [facility] Not Available Not Available 11/01/2024 12:01:55 10/12/19 25 10/12/2024 Basic metab olic 2000 panel - Serum or Plasm a anion gap 7 low: 6high: 16 Anion Gap 7 6 - 16 10/12 3:10 AM [facility] Not Available Not Available 11/01/2024 12:01:55 10/12/19 25 10/12/2024 Basic metab olic 2000 panel - Serum or Plasm a urea nitrogen/cre atinine [mass ratio] in serum or plasma 24 low: 7high: 23 high BUN/C reati nine Ratio 24 (H) 7 - 23 10/12 3:10 AM [facility] Not Available Not Available 11/01/2024 12:01:55 10/12/19 25 10/12/2024 Basic metab olic 1999 panel - Serum or Plasm a osmolality calculated 289 text: 275 - 295 mOsm/k g Osmol lila Davis lated 289 275 - 295 mOsm/ kg 10/12 3:10 AM [facility] Not Available Not Available 11/01/2024 12:01:55 10/12/19 25 10/12/2024 Basic metab olic 1999 panel - Serum or Plasm a glomerular filtration rate/1.73 sq M.predicted [volume rate/area] in serum, plasma or blood by creatinine-b ased formula (CKD-epi 2020) text: >=90 mL/min /1.73 m2 eGFR by CKD-E PI >90 >=90 mL/mi n/1.7 3 m2 10/12 3:10 AM [facility] Not Available Not Available 11/01/2024 12:01:55 10/12/19 25 10/12/2024 Basic metab olic 2000 panel - Serum or Plasm a interpretati on and review of laboratory results Abnorm al Not Available Not Available 12:01:55 10/14/19 25 10/13/2024 CBC W Auto Diffe renti al panel - Blood leukocytes [#/volume] in blood by automated count 16.1 text: 4.0 - 10.7 x10e9/ L high WBC 16.1 (H) 4.0 - 10.7 x10E9 /L 10/13 4:03 AM [facility] Tour Desk [facility] Not Available Not Available 11/01/2024 12:01:55 10/14/19 25 10/13/2024 CBC W Auto Diffe renti al panel - Blood erythrocytes [#/volume] in blood by automated count 4.29 text: 4.30 - 5.80 x10e12 /L low RBC Count 4.29 (L) 4.30 - 5.80 x10E1 2/L 10/13 4:03 AM [facility] Tour Desk [facility] Not Available Not Available 11/01/2024 12:01:55 10/14/19 25 10/13/2024 CBC W Auto Diffe renti al panel - Blood hemoglobin [mass/volume ] in blood 12.8 g/dL low: 13.3g/ dLhigh : 17.5g/ dL low Hemog lobin 12.8 (L) 13.3 - 17.5 g/dL 10/13 4:03 AM [facility] Tour Desk [facility] Not Available Not Available 11/01/2024 12:01:55 10/14/1910/13/2024 CBC W Auto Diffe renti al panel - Blood hematocrit [volume fraction] of blood by automated count 38 % low: 38.7%h igh: 51.1% low Hemat ocrit 38.0 (L) 38.7 - 51.1 % 10/13 4:03 AM [facility] Tour Desk [facility] Not Available Not Available 11/01/2024 12:01:55 10/14/19 25 10/13/2024 CBC W Auto Diffe renti al panel - Blood MCV [entitic volume] by automated count 88.6 fL low: 80fLhi gh: 98fL MCV 88.6 80.0 - 98.0 fL 10/13 4:03 AM [facility] Not Available Not Available 11/01/2024 12:01:55 10/14/19 25 10/13/2024 CBC W Auto Diffe renti al panel - Blood MCH [entitic mass] by automated count 29.8 pg low: 26.7pg high: 33.6pg MCH 29.8 26.7 - 33.6 pg 10/13 4:03 AM [facility] Not Available Not Available 11/01/2024 12:01:55 10/14/19 25 10/13/2024 CBC W Auto Diffe renti al panel - Blood MCHC [mass/volume ] by automated count 33.7 g/dL low: 31.7g/ dLhigh : 36.3g/ dL MCHC 33.7 31.7 - 36.3 g/dL 10/13 4:03 AM [facility] Not Available Not Available 11/01/2024 12:01:55 10/14/1910/13/2024 CBC W Auto Diffe renti al panel - Blood erythrocyte distribution width [ratio] by automated count 12.4 % low: 11.3%h igh: 14.8% RDW-C V 12.4 11.3 - 14.8 % 10/13 4:03 AM [facility] Not Available Not Available 11/01/2024 12:01:55 10/14/19 25 10/13/2024 CBC W Auto Diffe renti al panel - Blood platelets [#/volume] in blood by automated count 191 text: 150 - 420 x10e9/ L Plate let Count 191 150 - 420 x10E9 /L 10/13 4:03 AM [facility] Not Available Not Available 11/01/2024 12:01:55 10/14/1910/13/2024 CBC W Auto Diffe renti al panel - Blood platelet mean volume [entitic volume] in blood by automated count 10 fL low: 7.8fLh igh: 11.4fL MPV 10.0 7.8 - 11.4 fL 10/13 4:03 AM [facility] Not Available Not Available 11/01/2024 12:01:55 10/14/19 25 10/13/2024 CBC W Auto Diffe renti al panel - Blood neutrophils/ 100 leukocytes in blood by automated count 80.4 % low: 41%hig h: 74% high Neutr ophil % 80.4 (H) 41.0 - 74.0 % 10/13 4:03 AM [facility] Not Available Not Available 11/01/2024 12:01:55 10/14/1910/13/2024 CBC W Auto Diffe renti al panel - Blood lymphocytes/ 100 leukocytes in blood by automated count 10.8 % low: 17%hig h: 47% low Lymph ocyte % 10.8 (L) 17.0 - 47.0 % 10/13 4:03 AM [facility] Not Available Not Available 11/01/2024 12:01:55 10/14/1910/13/2024 CBC W Auto Diffe renti al panel - Blood monocytes/10 0 leukocytes in blood by automated count 7.5 % low: 3%high : 11% Monoc yte % 7.5 3.0 - 11.0 % 10/13 4:03 AM [facility] Not Available Not Available 11/01/2024 12:01:55 10/14/1910/13/2024 CBC W Auto Diffe renti al panel - Blood eosinophils/ 100 leukocytes in blood by automated count 0.4 % low: 0%high : 7% Eosin ophil % 0.4 0.0 - 7.0 % 10/13 4:03 AM [facility] Not Available Not Available 11/01/2024 12:01:55 10/14/1910/13/2024 CBC W Auto Diffe renti al panel - Blood basophils/10 0 leukocytes in blood by automated count 0.2 % low: 0%high : 1.6% Basop hil % 0.2 0.0 - 1.6 % 10/13 4:03 AM [facility] Not Available Not Available 11/01/2024 12:01:55 10/14/19 10/13/2024 CBC W Auto Diffe renti al panel - Blood immature granulocytes /100 leukocytes in blood by automated count 0.7 % low: 0%high : 1% Immat ure Granu locyt es % 0.7 0.0 - 1.0 % 10/13 4:03 AM [facility] Tour Desk [facility] Not Available Not Available 11/01/2024 12:01:55 10/14/19 25 10/13/2024 CBC W Auto Diffe renti al panel - Blood neutrophils [#/volume] in blood by automated count 12.93 text: 1.60 - 7.50 x10e9/ L high Neutr ophil Absol [place] 12.93 (H) 1.60 - 7.50 x10E9 /L 10/13 4:03 AM [facility] Tour Desk [facility] Not Available Not Available 11/01/2024 12:01:55 10/14/1910/13/2024 CBC W Auto Diffe renti al panel - Blood lymphocytes [#/volume] in blood by automated count 1.73 text: 1.00 - 4.40 x10e9/ L Lymph ocyte Absol [place] 1.73 1.00 - 4.40 x10E9 /L 10/13 4:03 AM [facility] Tour Desk [facility] Not Available Not Available 11/01/2024 12:01:55 10/14/19 25 10/13/2024 CBC W Auto Diffe renti al panel - Blood monocytes [#/volume] in blood by automated count 1.21 text: 0.15 - 1.00 x10e9/ L high Monoc yte Absol [place] 1.21 (H) 0.15 - 1.00 x10E9 /L 10/13 4:03 AM [facility] Tour Desk [facility] Not Available Not Available 11/01/2024 12:01:55 10/14/19 25 10/13/2024 CBC W Auto Diffe renti al panel - Blood eosinophils [#/volume] in blood 0.07 text: 0.00 - 0.60 x10e9/ L Eosin ophil Absol [place] 0.07 0.00 - 0.60 x10E9 /L 10/13 4:03 AM [facility] Not Available Not Available 11/01/2024 12:01:55 10/14/1910/13/2024 CBC W Auto Diffe renkristen al panel - Blood basophils [#/volume] in blood by automated count 0.03 text: 0.00 - 0.13 x10e9/ L Basop hil Absol [place] 0.03 0.00 - 0.13 x10E9 /L 10/13 4:03 AM [facility] Not Available Not Available 11/01/2024 12:01:55 10/14/1910/13/2024 CBC W Auto Diffe renti al panel - Blood interpretati on and review of laboratory results Abnorm al Not Available Not Available 12:01:55 10/14/1910/13/2024 Basic metab olic 2000 panel - Serum or Plasm a urea nitrogen [mass/volume ] in serum or plasma 31 mg/dL low: 7mg/dL high: 26mg/d L high BUN 31 (H) 7 - 26 mg/dL 10/13 4:20 AM [facility] [place] Not Available Not Available 11/01/2024 12:01:55 10/14/1910/13/2024 Basic metab olic 2000 panel - Serum or Plasm a creatinine [mass/volume ] in serum or plasma 1.13 mg/dL low: 0.71mg /dLhig h: 1.16mg /dL Creat inine 1.13 0.71 - 1.16 mg/dL 10/13 4:20 AM [facility] Not Available Not Available 11/01/2024 12:01:55 10/14/1910/13/2024 Basic metab olic 2000 panel - Serum or Plasm a sodium [moles/volum e] in serum or plasma 138 mmol/ L low: 136mmo l/Lhig h: 145mmo l/L Sodiu m 138 136 - 145 mmol/ L 10/13 4:20 AM [facility] Not Available Not Available 11/01/2024 12:01:55 10/14/1910/13/2024 Basic metab olic 2000 panel - Serum or Plasm a potassium [moles/volum e] in serum or plasma 4.2 mmol/ L low: 3.5mmo l/Lhig h: 4.5mmo l/L Potas sium 4.2 3.5 - 4.5 mmol/ L 10/13 4:20 AM [facility] Not Available Not Available 11/01/2024 12:01:55 10/14/1910/13/2024 Basic metab olic 2000 panel - Serum or Plasm a chloride [moles/volum e] in serum or plasma 103 mmol/ L low: 98mmol /Lhigh : 107mmo l/L Chlor nima 103 98 - 107 mmol/ L 10/13 4:20 AM [facility] Not Available Not Available 11/01/2024 12:01:55 10/14/19 25 10/13/2024 Basic metab olic 1999 panel - Serum or Plasm a carbon dioxide, total [moles/volum e] in serum or plasma 24 mmol/ L low: 22mmol /Lhigh : 29mmol /L CO2 24 22 - 29 mmol/ L 10/13 4:20 AM [facility] Not Available Not Available 11/01/2024 12:01:55 10/14/19 25 10/13/2024 Basic metab olic 2000 panel - Serum or Plasm a glucose [mass/volume ] in serum or plasma 126 mg/dL low: 70mg/d Lhigh: 99mg/d L high Gluco se 126 (H) 70 - 99 mg/dL 10/13 4:20 AM [facility] Not Available Not Available 11/01/2024 12:01:55 10/14/1910/13/2024 Basic metab olic 2000 panel - Serum or Plasm a calcium [moles/volum e] in serum or plasma 9.1 mg/dL low: 8.4mg/ dLhigh : 10.2mg /dL Calci um 9.1 8.4 - 10.2 mg/dL 10/13 4:20 AM [facility] Not Available Not Available 11/01/2024 12:01:55 10/14/1910/13/2024 Basic metab olic 2000 panel - Serum or Plasm a anion gap 11 low: 6high: 16 Anion Gap 11 6 - 16 10/13 4:20 AM [facility] Not Available Not Available 11/01/2024 12:01:55 10/14/19 25 10/13/2024 Basic metab olic 2000 panel - Serum or Plasm a urea nitrogen/cre atinine [mass ratio] in serum or plasma 27 low: 7high: 23 high BUN/C reati nine Ratio 27 (H) 7 - 23 10/13 4:20 AM [facility] [place] Not Available Not Available 11/01/2024 12:01:55 10/14/19 25 10/13/2024 Basic metab olic 2000 panel - Serum or Plasm a osmolality calculated 294 text: 275 - 295 mOsm/k g Osmol lila Calcu lated 294 275 - 295 mOsm/ kg 10/13 4:20 AM [facility] [facility] [facility] [place] Not Available Not Available 11/01/2024 12:01:55 10/14/1910/13/2024 Basic metab olic 2000 panel - Serum or Plasm a glomerular filtration rate/1.73 sq M.predicted [volume rate/area] in serum, plasma or blood by creatinine-b ased formula (CKD-epi 2020) 73 text: >=90 mL/min /1.73 m2 low eGFR by CKD-E PI 73 (L) >=90 mL/mi n/1.7 3 m2 10/13 4:20 AM [facility] [facility] [facility] Not Available Not Available 11/01/2024 12:01:55 10/14/1910/13/2024 Basic metab olic 2000 panel - Serum or Plasm a interpretati on and review of laboratory results Abnorm al Not Available Not Available 12:01:55 10/15/19 25 10/14/2024 CBC W Auto Diffe renti al panel - Blood leukocytes [#/volume] in blood by automated count 12.4 text: 4.0 - 10.7 x10e9/ L high WBC 12.4 (H) 4.0 - 10.7 x10E9 /L 10/14 4:30 AM [facility] Not Available Not Available 11/01/2024 12:01:55 10/15/1910/14/2024 CBC W Auto Diffe buzz al panel - Blood erythrocytes [#/volume] in blood by automated count 4.49 text: 4.30 - 5.80 x10e12 /L RBC Count 4.49 4.30 - 5.80 x10E1 2/L 10/14 4:30 AM [facility] Not Available Not Available 11/01/2024 12:01:55 10/15/1910/14/2024 CBC W Auto Diffe buzz bartlett panel - Blood hemoglobin [mass/volume ] in blood 13.3 g/dL low: 13.3g/ dLhigh : 17.5g/ dL Hemog lobin 13.3 13.3 - 17.5 g/dL 10/14 4:30 [facility] Not Available 11/01/2024 12:01:55 10/15/1910/14/2024 CBC W Auto Diffe buzz bartlett panel - Blood hematocrit [volume fraction] of blood by automated count 40 % low: 38.7%h igh: 51.1% Hemat ocrit 40.0 38.7 - 51.1 % 10/14 4:30 [facility] Not Available Not Available 11/01/2024 12:01:55 10/15/1910/14/2024 CBC W Auto Diffe buzz bartlett panel - Blood MCV [entitic volume] by automated count 89.1 fL low: 80fLhi gh: 98fL MCV 89.1 80.0 - 98.0 fL 10/14 4:30 AM [facility] Not Available Not Available 11/01/2024 12:01:55 10/15/1910/14/2024 CBC W Auto Diffe buzz al panel - Blood MCH [entitic mass] by automated count 29.6 pg low: 26.7pg high: 33.6pg MCH 29.6 26.7 - 33.6 pg 10/14 4:30 AM [facility] [place] Not Available Not Available 11/01/2024 12:01:55 10/15/1910/14/2024 CBC W Auto Diffe renti al panel - Blood MCHC [mass/volume ] by automated count 33.3 g/dL low: 31.7g/ dLhigh : 36.3g/ dL MCHC 33.3 31.7 - 36.3 g/dL 10/14 4:30 AM [facility] [place] Not Available Not Available 11/01/2024 12:01:55 10/15/1910/14/2024 CBC W Auto Diffe renti al panel - Blood erythrocyte distribution width [ratio] by automated count 12.2 % low: 11.3%h igh: 14.8% RDW-C V 12.2 11.3 - 14.8 % 10/14 4:30 AM [facility] [place] Not Available Not Available 11/01/2024 12:01:55 10/15/1910/14/2024 CBC W Auto Diffe renti al panel - Blood platelets [#/volume] in blood by automated count 203 text: 150 - 420 x10e9/ L Plate let Count 203 150 - 420 x10E9 /L 10/14 4:30 AM [facility] [place] Not Available Not Available 11/01/2024 12:01:55 10/15/1910/14/2024 CBC W Auto Diffe renti al panel - Blood platelet mean volume [entitic volume] in blood by automated count 10 fL low: 7.8fLh igh: 11.4fL MPV 10.0 7.8 - 11.4 fL 10/14 4:30 AM [facility] [place] Not Available Not Available 11/01/2024 12:01:55 10/15/19 25 10/14/2024 CBC W Auto Diffe renti al panel - Blood neutrophils/ 100 leukocytes in blood by automated count 71.7 % low: 41%hig h: 74% Neutr ophil % 71.7 41.0 - 74.0 % 10/14 4:30 AM [facility] [place] Not Available Not Available 11/01/2024 12:01:55 10/15/19 25 10/14/2024 CBC W Auto Diffe renti al panel - Blood lymphocytes/ 100 leukocytes in blood by automated count 18 % low: 17%hig h: 47% Lymph ocyte % 18.0 17.0 - 47.0 % 10/14 4:30 AM [facility] [place] Not Available Not Available 11/01/2024 12:01:55 10/15/1910/14/2024 CBC W Auto Diffe renti al panel - Blood monocytes/10 0 leukocytes in blood by automated count 7.5 % low: 3%high : 11% Monoc yte % 7.5 3.0 - 11.0 % 10/14 4:30 AM [facility] [place] Not Available Not Available 11/01/2024 12:01:55 10/15/1910/14/2024 CBC W Auto Diffe renti al panel - Blood eosinophils/ 100 leukocytes in blood by automated count 1.8 % low: 0%high : 7% Eosin ophil % 1.8 0.0 - 7.0 % 10/14 4:30 AM [facility] [place] Not Available Not Available 11/01/2024 12:01:55 10/15/1910/14/2024 CBC W Auto Diffe renti al panel - Blood basophils/10 0 leukocytes in blood by automated count 0.4 % low: 0%high : 1.6% Basop hil % 0.4 0.0 - 1.6 % 10/14 4:30 AM [facility] [place] Not Available Not Available 11/01/2024 12:01:55 10/15/1910/14/2024 CBC W Auto Diffe renti al panel - Blood immature granulocytes /100 leukocytes in blood by automated count 0.6 % low: 0%high : 1% Immat ure Granu locyt es % 0.6 0.0 - 1.0 % 10/14 4:30 AM [facility] [place] Not Available Not Available 11/01/2024 12:01:55 10/15/1910/14/2024 CBC W Auto Diffe renti al panel - Blood neutrophils [#/volume] in blood by automated count 8.91 text: 1.60 - 7.50 x10e9/ L high Neutr ophil Absol [place] 8.91 (H) 1.60 - 7.50 x10E9 /L 10/14 4:30 AM [facility] [place] Not Available Not Available 11/01/2024 12:01:55 10/15/19 25 10/14/2024 CBC W Auto Diffe renti al panel - Blood lymphocytes [#/volume] in blood by automated count 2.24 text: 1.00 - 4.40 x10e9/ L Lymph ocyte Absol [place] 2.24 1.00 - 4.40 x10E9 /L 10/14 4:30 AM [facility] Tour Desk [facility] [place] Not Available Not Available 11/01/2024 12:01:55 10/15/19 25 10/14/2024 CBC W Auto Diffe renti al panel - Blood monocytes [#/volume] in blood by automated count 0.93 text: 0.15 - 1.00 x10e9/ L Monoc yte Absol [place] 0.93 0.15 - 1.00 x10E9 /L 10/14 4:30 AM [facility] Tour Desk [facility] [place] Not Available Not Available 11/01/2024 12:01:55 10/15/19 25 10/14/2024 CBC W Auto Diffe renti al panel - Blood eosinophils [#/volume] in blood 0.23 text: 0.00 - 0.60 x10e9/ L Eosin ophil Absol [place] 0.23 0.00 - 0.60 x10E9 /L 10/14 4:30 AM [facility] Tour Desk [facility] [place] Not Available Not Available 11/01/2024 12:01:55 10/15/19 25 10/14/2024 CBC W Auto Diffe renti al panel - Blood basophils [#/volume] in blood by automated count 0.05 text: 0.00 - 0.13 x10e9/ L Basop hil Absol [place] 0.05 0.00 - 0.13 x10E9 /L 10/14 4:30 AM [facility] [place] Not Available Not Available 11/01/2024 12:01:55 10/15/1910/14/2024 CBC W Auto Diffe renti al panel - Blood interpretati on and review of laboratory results Abnorm al Not Available Not Available 12:01:55 10/15/1910/14/2024 Basic metab olic 1999 panel - Serum or Plasm a urea nitrogen [mass/volume ] in serum or plasma 27 mg/dL low: 7mg/dL high: 26mg/d L high BUN 27 (H) 7 - 26 mg/dL 10/14 4:54 AM [facility] [place] Not Available Not Available 11/01/2024 12:01:55 10/15/1910/14/2024 Basic metab olic 1999 panel - Serum or Plasm a creatinine [mass/volume ] in serum or plasma 0.94 mg/dL low: 0.71mg /dLhig h: 1.16mg /dL Creat inine 0.94 0.71 - 1.16 mg/dL 10/14 4:54 AM [facility] [place] Not Available Not Available 11/01/2024 12:01:55 10/15/1910/14/2024 Basic metab olic 2000 panel - Serum or Plasm a sodium [moles/volum e] in serum or plasma 138 mmol/ L low: 136mmo l/Lhig h: 145mmo l/L Sodiu m 138 136 - 145 mmol/ L 10/14 4:54 AM [facility] [place] Not Available Not Available 11/01/2024 12:01:55 10/15/1910/14/2024 Basic metab olic 1999 panel - Serum or Plasm a potassium [moles/volum e] in serum or plasma 4.2 mmol/ L low: 3.5mmo l/Lhig h: 4.5mmo l/L Potas sium 4.2 3.5 - 4.5 mmol/ L 10/14 4:54 AM [facility] [place] Not Available Not Available 11/01/2024 12:01:55 10/15/1910/14/2024 Basic metab olic 1999 panel - Serum or Plasm a chloride [moles/volum e] in serum or plasma 105 mmol/ L low: 98mmol /Lhigh : 107mmo l/L Chlor nima 105 98 - 107 mmol/ L 10/14 4:54 AM [facility] [place] Not Available Not Available 11/01/2024 12:01:55 10/15/1910/14/2024 Basic metab olic 1999 panel - Serum or Plasm a carbon dioxide, total [moles/volum e] in serum or plasma 24 mmol/ L low: 22mmol /Lhigh : 29mmol /L CO2 24 22 - 29 mmol/ L 10/14 4:54 AM [facility] [place] Not Available Not Available 11/01/2024 12:01:55 10/15/1910/14/2024 Basic metab olic 1999 panel - Serum or Plasm a glucose [mass/volume ] in serum or plasma 126 mg/dL low: 70mg/d Lhigh: 99mg/d L high Gluco se 126 (H) 70 - 99 mg/dL 10/14 4:54 AM [facility] [place] Not Available Not Available 11/01/2024 12:01:55 10/15/1910/14/2024 Basic metab olic 1999 panel - Serum or Plasm a calcium [moles/volum e] in serum or plasma 9.1 mg/dL low: 8.4mg/ dLhigh : 10.2mg /dL Calci um 9.1 8.4 - 10.2 mg/dL 10/14 4:54 AM [facility] [place] Not Available Not Available 11/01/2024 12:01:55 10/15/19 25 10/14/2024 Basic metab olic 2000 panel - Serum or Plasm a anion gap 9 low: 6high: 16 Anion Gap 9 6 - 16 10/14 4:54 AM [facility] [place] Not Available Not Available 11/01/2024 12:01:55 10/15/19 25 10/14/2024 Basic metab olic 2000 panel - Serum or Plasm a urea nitrogen/cre atinine [mass ratio] in serum or plasma 29 low: 7high: 23 high BUN/C reati nine Ratio 29 (H) 7 - 23 10/14 4:54 AM STUDENT DEAN [facility] Not Available Not Available 11/01/2024 12:01:55 10/15/19 25 10/14/2024 Basic metab olic 2000 panel - Serum or Plasm a osmolality calculated 293 text: 275 - 295 mOsm/k g Osmol alielisa Calcu lated 293 275 - 295 mOsm/ kg 10/14 4:54 AM STUDENT DEAN [facility] Not Available Not Available 11/01/2024 12:01:55 10/15/1910/14/2024 Basic metab olic 2000 panel - Serum or Plasm a glomerular filtration rate/1.73 sq M.predicted [volume rate/area] in serum, plasma or blood by creatinine-b ased formula (CKD-epi 2020) text: >=90 mL/min /1.73 m2 eGFR by CKD-E PI >90 >=90 mL/mi n/1.7 3 m2 10/14 4:54 AM [facility] Not Available Not Available 11/01/2024 12:01:55 10/15/1910/14/2024 Basic metab olic 2000 panel - Serum or Plasm a interpretati on and review of laboratory results Abnorm al Not Available Not Available 12:01:55 12/28/19 25 12/28/2024 COMP. METAB OLIC PANEL (14) glucose 110 mg/dL 70-99 above high normal Not Available [facility] ([facility]) [address] [place], [address], 12/28/2024 06:50:26 12/28/19 25 12/28/2024 COMP. METAB OLIC PANEL (14) BUN 19 mg/dL 8-27 Not Available [facility] ([facility]) [address] [place], [address], 12/28/2024 06:50:26 12/28/19 25 12/28/2024 COMP. METAB OLIC PANEL (14) creatinine 0.83 mg/dL 0.76-1 .27 Not Available [facility] ([facility]) [address] [place], [address], 12/28/2024 06:50:26 12/28/19 25 12/28/2024 COMP. METAB OLIC PANEL (14) eGFR 98 mL/mi n/1.7 3 >59 Not Available [facility] ([facility]) [address] [place], [address], 12/28/2024 06:50:26 12/28/19 25 12/28/2024 COMP. METAB OLIC PANEL (14) BUN/creatini ne ratio 23 10-24 Not Available [facility] ([facility]) [address] [place], [address], 12/28/2024 06:50:26 12/28/19 25 12/28/2024 COMP. METAB OLIC PANEL (14) sodium 141 mmol/ L 134-14 4 Not Available [facility] ([facility]) [address] [place], [address], 12/28/2024 06:50:26 12/28/19 25 12/28/2024 COMP. METAB OLIC PANEL (14) potassium 3.8 mmol/ L 3.5-5. 2 Not Available [facility] ([facility]) [address] [place], [address], 12/28/2024 06:50:26 12/28/19 25 12/28/2024 COMP. METAB OLIC PANEL (14) chloride 106 mmol/ L 96-106 Not Available [facility] ([facility]) [address] [place], [address], 12/28/2024 06:50:26 12/28/19 25 12/28/2024 COMP. METAB OLIC PANEL (14) carbon dioxide, total 19 mmol/ L 20-29 below low normal Not Available [facility] ([facility]) [address] [place], [address], 12/28/2024 06:50:26 12/28/19 25 12/28/2024 COMP. METAB OLIC PANEL (14) calcium 9.7 mg/dL 8.6-10 .2 Not Available [facility] ([facility]) [address] [place], [address], 12/28/2024 06:50:26 12/28/19 25 12/28/2024 COMP. METAB OLIC PANEL (14) protein, total 6.9 g/dL 6.0-8. 5 Not Available [facility] ([facility]) [address] [place], [address], 12/28/2024 06:50:26 12/28/19 25 12/28/2024 COMP. METAB OLIC PANEL (14) albumin 4.6 g/dL 3.9-4. 9 Not Available [facility] ([facility]) [address], [place], [address], 12/28/2024 06:50:26 12/28/1912/28/2024 COMP. METAB OLIC PANEL (14) globulin, total 2.3 g/dL 1.5-4. 5 Not Available [facility] ([facility]) [address] [place], [address], 12/28/2024 06:50:26 12/28/19 25 12/28/2024 COMP. METAB OLIC PANEL (14) bilirubin, total 0.5 mg/dL 0.0-1. 2 Not Available [facility] ([facility]) [address] [place], [address], 12/28/2024 06:50:26 12/28/19 25 12/28/2024 COMP. METAB OLIC PANEL (14) alkaline phosphatase 105 IU/L 44-121 Not Available [facility] ([facility]) [address] [place], [address], 12/28/2024 06:50:26 12/28/19 25 12/28/2024 COMP. METAB OLIC PANEL (14) AST (SGOT) 22 IU/L 0-40 Not Available [facility] ([facility]) [address], [place], [address], 12/28/2024 06:50:26 12/28/19 25 12/28/2024 COMP. METAB OLIC PANEL (14) ALT (SGPT) 24 IU/L 0-44 Not Available [facility] ([facility]) [address] [place], [address], 12/28/2024 06:50:26 12/28/19 25 12/28/2024 HEMOG LOBIN A1C hemoglobin A1C 5.8 % 4.8-5. 6 above high normal Predi abete s: 5.7 - 6.4 Diabe marielle: >6.4 Glyce chadwick contr ol for adult s with diabe marielle: <7.0 Not Available [facility] ([facility]) [address] [place], [address], 12/28/2024 06:50:27 12/28/1912/28/2024 CBC WITH DIFFE RENTI AL/PL ATELE T WBC 7.7 x10e3 /uL 3.4-10 .8 Not Available [facility] ([facility]) [address] [place], [address], 12/28/2024 06:50:28 12/28/1912/28/2024 CBC WITH DIFFE RENTI AL/PL ATELE T RBC 4.88 x10e6 /uL 4.14-5 .80 Not Available [facility] ([facility]) [address] [place], [address], 12/28/2024 06:50:28 12/28/19 25 12/28/2024 CBC WITH DIFFE RENTI AL/PL ATELE T hemoglobin 14.0 g/dL 13.0-1 7.7 Not Available [facility] ([facility]) [address], [place], [address], 12/28/2024 06:50:28 12/28/1912/28/2024 CBC WITH DIFFE RENTI AL/PL ATELE T hematocrit 44.2 % 37.5-5 1.0 Not Available [facility] ([facility]) [address], [place], [address], 12/28/2024 06:50:28 12/28/1912/28/2024 CBC WITH DIFFE RENTI AL/PL ATELE T MCV 91 fL 79-97 Not Available [facility] ([facility]) [address], [place], [address], 12/28/2024 06:50:28 12/28/1912/28/2024 CBC WITH DIFFE RENTI AL/PL ATELE T MCH 28.7 pg 26.6-3 3.0 Not Available [facility] ([facility]) [address], [place], [address], 12/28/2024 06:50:28 12/28/1912/28/2024 CBC WITH DIFFE RENTI AL/PL ATELE T MCHC 31.7 g/dL 31.5-3 5.7 Not Available [facility] ([facility]) [address] [place], [address], 12/28/2024 06:50:28 12/28/1912/28/2024 CBC WITH DIFFE RENTI AL/PL ATELE T RDW 11.9 % 11.6-1 5.4 Not Available [facility] ([facility]) [address] [place], [address], 12/28/2024 06:50:28 12/28/19 25 12/28/2024 CBC WITH DIFFE RENTI AL/PL ATELE T platelets 256 x10e3 /uL 150-45 0 Not Available [facility] ([facility]) [address], [place], [address], 12/28/2024 06:50:28 12/28/1912/28/2024 CBC WITH DIFFE RENTI AL/PL ATELE T neutrophils 69 % notest ab. Not Available [facility] ([facility]) [address], [place], [address], 12/28/2024 06:50:28 12/28/19 25 12/28/2024 CBC WITH DIFFE RENTI AL/PL ATELE T lymphs 21 % notest ab. Not Available [facility] ([facility]) [address], [place], [address], 12/28/2024 06:50:28 12/28/19 25 12/28/2024 CBC WITH DIFFE RENTI AL/PL ATELE T monocytes 6 % notest ab. Not Available [facility] ([facility]) [address], [place], [address], 12/28/2024 06:50:28 12/28/1912/28/2024 CBC WITH DIFFE RENTI AL/PL ATELE T eos 3 % notest ab. Not Available [facility] ([facility]) [address], [place], [address], 12/28/2024 06:50:28 12/28/1912/28/2024 CBC WITH DIFFE RENTI AL/PL ATELE T basos 1 % notest ab. Not Available [facility] ([facility]) [address], [place], [address], 12/28/2024 06:50:28 12/28/1912/28/2024 CBC WITH DIFFE RENTI AL/PL ATELE T neutrophils (absolute) 5.3 x10e3 /uL 1.4-7. 0 Not Available [facility] ([facility]) [address], [place], [address], 12/28/2024 06:50:28 12/28/1912/28/2024 CBC WITH DIFFE RENTI AL/PL ATELE T lymphs (absolute) 1.6 x10e3 /uL 0.7-3. 1 Not Available [facility] ([facility]) [address], [place], [address], 12/28/2024 06:50:28 12/28/1912/28/2024 CBC WITH DIFFE RENTI AL/PL ATELE T monocytes(ab solute) 0.5 x10e3 /uL 0.1-0. 9 Not Available [facility] ([facility]) [address], [place], [address], 12/28/2024 06:50:28 12/28/19 25 12/28/2024 CBC WITH DIFFE RENTI AL/PL ATELE T eos (absolute) 0.2 x10e3 /uL 0.0-0. 4 Not Available [facility] ([facility]) [address], [place], [address], 12/28/2024 06:50:28 12/28/1912/28/2024 CBC WITH DIFFE RENTI AL/PL ATELE T baso (absolute) 0.0 x10e3 /uL 0.0-0. 2 Not Available [facility] ([facility]) [address], [place], [address], 12/28/2024 06:50:28 12/28/1912/28/2024 CBC WITH DIFFE RENTI AL/PL ATELE T immature granulocytes 0 % notest ab. Not Available [facility] ([facility]) [address] [place], [address], 12/28/2024 06:50:28 12/28/19 25 12/28/2024 CBC WITH DIFFE RENTI AL/PL ATELE T immature grans (abs) 0.0 x10e3 /uL 0.0-0. 1 Not Available [facility] ([facility]) [address] [place], [address], 12/28/2024 06:50:28 12/28/19 25 12/28/2024 ALBUM IN/CR EATIN INE RATIO ,URIN E creatinine, urine 146.5 mg/dL notest ab. Not Available [facility] ([facility]) [address] [place], [address], 12/28/2024 13:28:07 12/28/19 25 12/28/2024 ALBUM IN/CR EATIN INE RATIO ,URIN E albumin, urine 24.2 ug/mL notest ab. Not Available [facility] ([facility]) [address] [place], [address], 12/28/2024 13:28:07 12/28/19 25 12/28/2024 ALBUM IN/CR EATIN INE RATIO ,URIN E alb/creat ratio 17 mg/g_ creat 0-29 Saira l: 0 - 29 Moder ately incre ased: 30 - 300 Sever agapito incre ased: >300 Not Available [facility] ([facility]) [address] [place], [address], 12/28/2024 13:28:07 02/27/20 25 02/27/2025 BASIC METAB OLIC PANEL (8) glucose 74 mg/dL 70-99 Not Available [facility] ([facility]) [address] [place], [address], 02/27/2025 08:21:12 02/27/20 25 02/27/2025 BASIC METAB OLIC PANEL (8) BUN 15 mg/dL 8-27 Not Available [facility] ([facility]) [address] [place], [address], 02/27/2025 08:21:12 02/27/20 25 02/27/2025 BASIC METAB OLIC PANEL (8) creatinine 0.77 mg/dL 0.76-1 .27 Not Available [facility] ([facility]) [address] [place], [address], 02/27/2025 08:21:12 02/27/2002/27/2025 BASIC METAB OLIC PANEL (8) eGFR 99 mL/mi n/1.7 3 >59 Not Available [facility] ([facility]) [address] [place], [address], 02/27/2025 08:21:12 02/27/2002/27/2025 BASIC METAB OLIC PANEL (8) BUN/creatini ne ratio 19 10-24 Not Available [facility] ([facility]) [address] [place], [address], 02/27/2025 08:21:12 02/27/2002/27/2025 BASIC METAB OLIC PANEL (8) sodium 142 mmol/ L 134-14 4 Not Available [facility] ([facility]) [address] [place], [address], 02/27/2025 08:21:12 02/27/2002/27/2025 BASIC METAB OLIC PANEL (8) potassium 3.8 mmol/ L 3.5-5. 2 Not Available [facility] ([facility]) [address] [place], [address], 02/27/2025 08:21:12 02/27/2002/27/2025 BASIC METAB OLIC PANEL (8) chloride 105 mmol/ L 96-106 Not Available [facility] ([facility]) [address] [place], [address], 02/27/2025 08:21:12 02/27/2002/27/2025 BASIC METAB OLIC PANEL (8) carbon dioxide, total 21 mmol/ L 20-29 Not Available [facility] ([facility]) [address] [place], [address], 02/27/2025 08:21:12 02/27/20 25 02/27/2025 BASIC METAB OLIC PANEL (8) calcium 9.6 mg/dL 8.6-10 .2 Not Available [facility] ([facility]) [address], [place], [address], 02/27/2025 08:21:12 02/27/20 25 02/27/2025 HEMOG LOBIN A1C hemoglobin A1C 6.0 % 4.8-5. 6 above high normal Predi abete s: 5.7 - 6.4 Diabe marielle: >6.4 Glyce chadwick contr ol for adult s with diabe marielle: <7.0 Not Available [facility] ([facility]) [address], [place], [address], 02/27/2025 08:21:13 02/27/20 25 02/27/2025 PROST ATE-S PECIF IC AG prostate specific Ag 1.2 NG/mL 0.0-4. 0 Parker ECLIA metho dolog y. Accor ding to the Ameri can [employer]o g[employer] iatio n, Serum PSA shoul d decre ase and remai n at undet ectab le level s after radic al prost atect ana. The AUA defin es bioch emica l recur rence as an initi al PSA value 0.2 ng/mL or great er follo wed by a subse quent confi rmato ry PSA value 0.2 ng/mL or great er. Value s obtai kirill with diffe rent assay metho ds or kits canno t be used inter roman eably . Resul ts canno t be inter prete d as absol [place] evide nce of the prese nce or absen ce of artur rader se. Not Available [facility] ([facility]) [address], [place], [address], 02/27/2025 08:21:15 09/17/19 25 09/10/2024 US, echoc ardio gram, trans thora cic, compl ete No observ ation record ed. [email or web address] Not Available 2024 14:15:01 09/19/19 25 09/11/2024 gibson can cardi olite stres s test (PROC ) No observ ation record ed. [facility] Scheduling [address], [place], [address], 09/19/2024 15:45:17 09/19/19 25 09/11/2024 gibson can cardi olite stres s test (PROC ) No observ ation record ed. [facility] Scheduling [address], [place], [address], 09/19/2024 15:45:01 09/19/19 25 09/10/2024 US, echoc ardio gram, trans thora cic, compl ete, w/ color flow No observ ation record ed. [facility] Scheduling [address], [place], [address], 09/19/2024 17:03:58 09/29/19 25 09/28/2024 CT, angio gram, chest , w/ contr ast No observ ation record ed. [facility] [address] [facility], [place], [address], 10/03/2024 10:47:30 Result Notes None recorded. Problems Name Problem SNOMED Code Status Onset Date Resolution Date Notes Provider Name and Address Organization Details Recorded Time Essential hypertension 09847229 Active 2023 Vernon Cano MD Attn: Wenceslao mendoza,[address] [facility], [place], [address], [place] [facility] 4 11:15:30 Dyspnea on exertion 40911081 Active 2023 Vernon Cano MD Attn: Wenceslao mendoza,[address], [place], [address], [place] [facility] 4 11:17:10 Pure hypercholester olemia 155671595 Active 2023 Vernon Cano MD Attn: Wenceslao mendoza,[address] [facility], [place], [address], [facility] - [facility] 4 11:18:10 Electrocardiog casper abnormal 857249053 Active 2023 Vernon Cano MD Attn: Wenceslao mendoza,[address] [facility], [place], [address], [place] - [facility] 4 11:19:12 Snoring 38235280 Active 2023 Vernon Cano MD Attn: Wenceslao mendoza,[address] [facility], [place], [address], [facility] - [facility] 4 11:20:54 Aneurysm of ascending aorta 586718523 Active 2024 Vernon Cano MD Attn: Wenceslao mendoza,[address] [facility], [place], [address], [facility] - [facility] 5 17:25:19 Problem Notes None recorded. Procedures Surgical History Date Name Laterality Status Provider Name and Address Organization Details Recorded Time Back Surgery completed Tina Franco [place] [facility] 11/16/2024 12:31:09 procedure on esophagus completed Tina Franco [place] [facility] 06/13/2024 14:30:11 Imaging Results None recorded. Procedure Notes None recorded. Medical Equipment None Reported. Allergies No known drug allergies Medications Name Sig Start Date Stop Date Status Note LastModified by Organization Details LastModified Time amoxicill in 500 mg capsule two capsules po tid 09/16 completed Not Available Not Available Not Available clonidine HCl 0.1 mg tablet TAKE 1 TABLET BY MOUTH TWICE DAILY 09/20 completed Not Available Not Available Not Available doxycycli ne hyclate 100 mg capsule one capsule po bid with food 03/01 completed Not Available Not Available Not Available clindamyc in HCl 300 mg capsule Take 1 capsule every 8 hours by oral route for 7 days. 08/25 completed Not Available Not Available Not Available metoprolo l succinate ER 50 mg tablet,ex tended release 24 hr TAKE 1 TABLET BY MOUTH EVERY DAY 08/07 completed Not Available Not Available Not Available hydrocodo ne 5 mg-acetam inophen 325 mg tablet TAKE 1 TO 2 TABLETS BY MOUTH EVERY 4 TO 6 HOURS NEEDED FOR PAIN. DO NOT EXCEED 8 TABLETS IN ANY 24 HOUR PERIOD 08/07 completed Not Available Not Available Not Available prednison e 20 mg tablet TAKE 1 TABLET BY MOUTH TWICE DAILY WITH FOOD active Not Available Not Available No t Available clobetaso l 0.05 % topical cream Apply bid no more than ten days in a row 11/16 completed Not Available Not Available Not Available omeprazol e 40 mg capsule,d elayed release Take 1 capsule every day by oral route for 30 days. 08/07 completed Not Available Not Available Not Available sildenafi l 100 mg tablet TAKE 1 TABLET BY MOUTH ONCE DAILY NEEDED 11/23 completed Not Available Not Available Not Available oxycodone -acetamin ophen 5 mg-325 mg tablet TAKE 1 TABLET BY MOUTH EVERY 6 HOURS NEEDED FOR PAIN 11/16 completed Not Available Not Available Not Available famotidin e 20 mg tablet TAKE 2 TABLETS BY MOUTH EVERY DAY. CAN SPLIT TO 1 TABLET TWICE DAILY 11/16 completed Not Available Not Available Not Available methocarb guanakito 750 mg tablet TAKE 1 TABLET BY MOUTH EVERY 8 HOURS 11/16 completed Not Available Not Available Not Available amlodipin e 5 mg-benaze pril 10 mg capsule Take 1 capsule every day by oral route. 09/20 completed Not Available Not Available Not Available buspirone 10 mg tablet Take 1 tablet twice a day by oral route. 09/16 completed Not Available Not Available Not Available cephalexi n 500 mg tablet one tab po tid 03/01 completed Not Available Not Available Not Available albuterol sulfate HFA 90 mcg/actua tion aerosol inhaler INHALE 2 PUFFS BY MOUTH FOUR TIMES DAILY NEEDED active Not Available Not Available No t Available cefdinir 300 mg capsule TAKE 1 CAPSULE BY MOUTH EVERY 12 HOURS 06/13 completed Not Available Not Available Not Available fluticaso ne propionat e 50 mcg/actua tion nasal spray,mikhail pension SHAKE LIQUID AND USE 2 SPRAYS IN EACH NOSTRIL EVERY DAY 10/02 completed Not Available Not Available Not Available amoxicill in 875 mg-potass ium clavulana te 125 mg tablet TAKE 1 TABLET BY MOUTH TWICE DAILY. TAKE 12 HOURS APART AND TAKE EACH DOSE WITH A LARGE GLASS OF WATER TO PREVENT DIARRHEA . STOP CEPHALEX IN 03/12 completed finished course this AM Not Available Not Available Not Available escitalop casper 20 mg tablet TAKE 1 TABLET BY MOUTH EVERY DAY 2024 active Not Available Not Available Not Avai lable rosuvasta tin 20 mg tablet TAKE 1 TABLET BY MOUTH EVERY DAY active Not Available Not Available No t Available Prilosec OTC 20 mg tablet,de layed release Take 1 tablet every day by oral route. 2024 active Not Available Not Available Not Avai lable tadalafil 5 mg tablet TAKE ONE TABLET BY MOUTH AT BEDTIME active Not Available Not Available No t Available pregabali n 75 mg capsule TAKE 1 CAPSULE BY MOUTH TWICE DAILY 11/16 completed Not Available Not Available Not Available amlodipin e 10 mg-benaze pril 40 mg capsule TAKE 1 CAPSULE BY MOUTH EVERY DAY active Not Available Not Available No t Available Xarelto 20 mg tablet Take by oral route. 08/07 completed Not Available Not Available Not Available Xarelto DVT-PE Treatment 30-Day Starter 15 mg(42)-20 mg(9) tablet pack Take by oral route. 11/23 completed Not Available Not Available Not Available Breyna 160 mcg-4.5 mcg/actua tion HFA aerosol inhaler two puffs bid 2024 active Not Available Not Available Not Avai lable Vitals Date Recorded Systolic And Diastolic Provider Name and Address Organization Details Last Updated DateTime 09/20/2024 140/90 mm[Hg] Preeti Marina Attn: Accounting,[address] [place], [address], [place] - [facility] 09/20/2024 17:21:18 Date Recorded Body height Body mass index (BMI) Body weight Heart rate Oxygen saturation Oxygen saturation in Arterial blood by Pulse oximetry Provider Name and Address Organization Details Last Updated DateTime 02/06/202 5 182.88 cm 32.1 kg/m2 692110. 24 g 68 /min 99 % 99 % Avila Romero MA [facility] 5 16:51:08 Date Recorded Body height Body mass index (BMI) Body weight Oxygen saturation Oxygen saturation in Arterial blood by Pulse oximetry Heart rate Body temperature Systolic And Diastolic Provider Name and Address Organization Details Last Updated DateTime 5 182.88 cm 32.1 kg/m2 442306. 39 g 99 % 99 % 81 /min 98.1 [degF] 126/78 mm[Hg] Tina Franco MA [facility] 5 09:55:42 Date Recorded Body height Body mass index (BMI) Body weight Oxygen saturation Oxygen saturation in Arterial blood by Pulse oximetry Heart rate Body temperature Systolic And Diastolic Provider Name and Address Organization Details Last Updated DateTime 5 182.88 cm 32.4 kg/m2 617062. 58 g 99 % 99 % 82 /min 98.1 [degF] 118/78 mm[Hg] Tina Franco MA [facility] 5 12:30:44 Date Recorded Body height Body mass index (BMI) Body weight Heart rate Oxygen saturation Oxygen saturation in Arterial blood by Pulse oximetry Systolic And Diastolic Provider Name and Address Organization Details Last Updated DateTime 5 182.88 cm 31.7 kg/m2 597741. 26 g 73 /min 97 % 97 % 114/72 mm[Hg] Avila Romero MA [facility] 5 15:41:43 Date Recorded Body height Body mass index (BMI) Body weight Body temperature Oxygen saturation Oxygen saturation in Arterial blood by Pulse oximetry Heart rate Systolic And Diastolic Provider Name and Address Organization Details Last Updated DateTime 5 182.88 cm 30.1 kg/m2 590662. 51 g 97.2 [degF] 97 % 97 % 72 /min 120/82 mm[Hg] Nyasia Fitzgerald [facility] 14:12:38 Social History Question Answer Notes LastModified by Organizat ion Details LastModified Time Tobacco Smoking Status Former Smoker quit June Nyasia vargas [facility] 02/26/2025 14:10:21 Do You Have An Advance Directive? No Information not available 12/23/2021 In The 14 Days Before Symptom Onset, Have You Had Close Contact With A Laboratory-confir med COVID-19 While That Case Was Ill? No Information not available 03/19/2024 In The 14 Days Before Symptom Onset, Have You Had Close Contact With A Person Who Is Under Investigation For COVID-19 While That Person Was Ill? No Information not available 03/19/2024 Have You Been To An Area Known To Be High Risk For COVID-19? No Information not available 03/19/2024 What Was The Date Of Your Most Recent Tobacco Screening? 02/26/2025 [email or web address] Information not available 02/26/2025 What Is Your Current Pack Years? [email or web address] [email or web address] Information not available 12/23/2021 What Is Your Relationship Status? Information not available 12/23/2021 Are You Sexually Active? Yes Information not available 12/23/2021 Do You Have Smoke And Carbon Monoxide Detectors In Your Home? Yes Information not available 12/23/2021 At What Age Did You Start Smoking Tobacco? 21 Information not available 12/23/2021 Are You Passively Exposed To Smoke? Yes Information no t available 12/23/2021 How Much Tobacco Do You Smoke? 0.5 PPD [email or web address] Information not available 02/22/2024 Has Tobacco Cessation Counseling Been Provided? Yes Information not available 12/23/2021 On What Date Was Tobacco Cessation Counseling Provided? 02/26/2025 [email or web address] Information not available 02/26/2025 How Many Years Have You Smoked Tobacco? 30 Information not available 12/23/2021 How Many Years Have You Used E-cigarettes Or Vape? 3 Information not available 12/23/2021 Sex: Male Functional Status Question Answer Note LastModified by Organizat ion Details LastModified Time Do you use any illicit or recreational drugs? No Information not available 12/23/2021 Do you or have you ever used any other forms of tobacco or nicotine? Yes vapor Information not available 12/23/2021 What is your level of alcohol consumption? Occasional Information not available 12/23/2021 Do you or have you ever used smokeless tobacco? 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 Retired Information not available 08/03/2022 Do you or have you ever used e-cigarettes or vape? Current user of electronic cigarettes Information not available 12/23/2021 Mental Status None recorded. Family History Relationship Description Onset Age of this Age Resolved Age Notes LastModified by Organization Details LastModified Time Father Heart disease 65 83 [address] and pacema ker, cb-rma [email or web address] Not available 12/23/2021 16:06:28 Mother Diabetes mellitus 83 [email or web address] Not available 12/13 16:05:59 Medical History Condition Response Diabetes N Anxiety Disorder Y High Blood Pressure Y Atrial Fibrillation N Seizures/Epilepsy N Cancer N Kidney or Bladder Problems N Stroke N Thyroid Problems N GI Problems N Blood Clots N COPD Y Allergies N Depression Y Anemia N High Cholesterol N Hepatitis N Liver Disease Y Heart Attack ([place]) N Heart Failure N Immunizations Vaccine Type Date Status Note Provider Nam e and Address Organization Details Recorded Time COVID-19, mRNA, LNP-S, PF, 30 mcg/0.3 mL dose 11/23/2020 completed Radha Jansen [place] null, [place] - [facility] 09/07/2022 16:38:36 COVID-19, mRNA, LNP-S, PF, 30 mcg/0.3 mL dose 10/28/2020 completed Radha J[place], [place] [facility] 09/07/2022 16:38:36 Tdap 09/07/2022 completed MARQUIS NUNO Attn: Accounting,[address] [place], [address], [place] [facility] 09/13/2022 22:13:19 Past Encounters Encounter ID Performer Location Encounter Start Date Encounter Closed Date Diagnosis/Indication Diagnosis SNOMED-CT Code Diagnosis ICD10 Code Diagnosis Note [id number] MARQUIS NUNO (Adult Med) [address] [place] [address] 0 12/23/2021 15:52:16 12/24/2021 12:48:10 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 Lightheadedness 94593866 8 R42 61yo M with significan t hx of HTN and 30+ pack-year smoking history presents with 2x episodes of lightheade dness and vision changes over the past month. No preceding chest pain, palpitatio n, or SOB, no other neurologic symptoms. His examinatio n today is benign. Symptoms could be associated with his metoprolol (hypotensi on/bradyca rdia), states he feels flushed prior to these episodes. Will send order for cardiology referral for further evaluation . Advised him to return to clinic or follow with his PCP regarding workup. Bilateral transient visual loss [id number] 09966 H53.123 Vision changes described as drawn shade associated with lightheade dness described above. No visual findings on exam. ?amaurosis fugax. No carotid bruits on exam. Referral to cardiology as above. May need ophthalmol ogy evaluation as well. Smoker 59489113 F17.200 30+ pack year. Smoking cessation discussed. Needs LDCT if not completed with PCP. Essential hypertension 72509263 I10 BP 130/90 today in clinic. Continue metoprolol as prescribed . May need medication adjustment s, defer to PCP and cardiology . [id number] MARQUIS NUNO (Adult Med) [address] [place] [address] 08/03/2022 09:22:44 08/04/2022 15:39:36 Plantar fasciitis 097039216 M72.2 - Recommende d night splint and using a bottle or tennis ball to roll out fascia- Continue heat and ice packs as needed- Recommende d OTC pain medication for relief- Pt has appt with artificial candy maker next month- RTC if symptoms do not improve [id number] MARQUIS NUNO (Adult Med) [address] [place] [address]62[address] 09/07/2022 16:23:40 09/14/2022 13:58:52 Immunization due 802362500 Z28.39 Tdap updated. Localized swelling of right lower leg [id number] 8092266 R22.41 Patient reports swelling of right calf x1 week that is painful with ambulation and while laying down. Patient had swelling to his ankle in a similar presentati on 3 weeks prior. US was ordered at this time which did not reveal DVT. On PE today, right calf is tender, warm, swollen, positive Isabelle sign. Right popliteal region is also tender to palpation and slightly swollen. Pulses normal throughout bilaterall y. No signs of cellulitis . Possible venous insufficie ncy vs. DVT vs. MSK etiology. Will repeat US to rule out DVT d/t patient history of smoking and physical exam findings. Will follow up with results. Pain of knee region 1003 397134 M25.561 US to include R knee to r/o santana's cyst given popliteal swelling and tenderness . [id number] MARQUIS NUNO (Adult Med) [address] [place] [address] 0 09/23/2022 16:11:05 10/13/2022 10:14:24 Deep venous thrombosis 627385273 I82.409 Dopplers 09/10/22 showing DVT of right lower leg involving femoral, popliteal, posterior tibial, peroneal, and gastrocnem ius veins. Likely provoked by smoking. No concerning symptoms for PE and O2 sats 100%. Discussed continuati on of Xarelto and continuing anticoagul ation therapy for 6 months to 1 year. Dysuria 66076017 R30.0 Burning sensation when voiding. Urine dipstick revealed small amounts of blood. Will send for culture to r/o infection. Advised increased water intake. Screening for malignant neoplasm of prostate 393941352 Z12.5 PSA ordered Microscopic hematuria 19 7344977 R31.29 Rule out infection per culture as above. Urology referral placed. Tinnitus of left ear 758 0852452 106 H93.12 Discussed lack of definitive medical treatment for tinnitus and offered audiology referral to check for hearing loss, patient declined at this time. [id number] MARQUIS NUNO (Adult Med) [address] [place] [address] 02/17/2023 09:22:18 02/21/2023 14:48:37 Deep venous thrombosis 210533431 I82.409 Dopplers 09/10/22 showing DVT of right lower leg involving femoral, popliteal, posterior tibial, peroneal, and gastrocnem ius veins. Likely provoked by smoking. No concerning symptoms for PE and O2 sats 99%. Discussed continuing anticoagul ation therapy for 6 months to 1 year. Overweight 892465823 E66 .3 Per BMI 28. Encouraged lifestyle modificati ons - diet and exercise Pruritic rash 59280573 L 28.2 Pruritic rash to thenar eminence right hand with scattered macules 2-3 mm with central ulcer, in various stages of healing. Suspect exposure to irritant plant during yard work, c/b persistent scratching . Discussed using topical steroid cream for symptomati c relief (pt has at home). Educated on hand hygeine and importance of not scratching and wearing gloves with outside work to prevent infection. RTC if rash does not improve. [id number] MARQUIS NUNO (Adult Med) [address] [place] [address]82[address] 0 04/01/2023 10:44:37 04/04/2023 13:03:21 Deep venous thrombosis of lower extremity 411342912 I82.409 Dopplers 09/10/22 showing DVT of right lower leg involving femoral, popliteal, posterior tibial, peroneal, and gastrocnem ius veins. Likely provoked by smoking. No concerning symptoms for PE and O2 sats 98%. Discussed continuing anticoagul ation therapy for ~1 year. Smoker 29001158 F17.200 Cellulitis of right upper limb 0609478019 4214893 L03.113 Pt with significan t swelling, erythema, warmth, and tenderness to R upper forearm/el bow with effusion in R elbow joint. Concerning for cellulitis and possible septic arthritis. VSS. Given severity, quick onset and spread, and upcoming weekend, will send to ED for urgent evaluation and IV treatment. Pt agreeable to plan. [facility] contacted and made aware of pt's arrival. [id number] MARQUIS NUNO (Adult Med) [address] [place] [address] 04/13/2023 16:07:52 04/16/2023 10:21:31 Eczema 78969586 L30.9 pt requesting refill on clobetasol . Deep venou s thrombosis of lower extremity 433540254 I82.409 Dopplers 09/10/22 showing DVT of right lower leg involving femoral, popliteal, posterior tibial, peroneal, and gastrocnem ius veins. Likely provoked by smoking. Discussed continuing anticoagul ation therapy for ~1 year, plan to repeat imaging in Aug 2023. Cellulitis of right upper limb 0438630348 0911386 L03.113 Improved but still concern for lingering infection given swelling, erythema, and warmth. Will continue clinda for another week and obtain imaging. Smoker 73512639 F17.200 Cessation discussed. [id number] Nicole Stoddard MD [facility] (Adult Med) [address] [place] [address] 0 08/25/2023 11:49:50 08/31/2023 15:50:52 Overweight 852965041 E66.3 Bursitis o f olecranon of right elbow 7459248440 61170 M70.21 Continues with swelling and mild tenderness after acute bursitis has resolved. Will refer to Orthopedic s for possible drainage. Essential hypertension 90762376 I10 Routine blood work and urine. Continue present medication . Blood pressure controlled . Cough 47970447 R05.9 Cough for a month. Does seem to be improving. No evidence of bacterial infection on exam. Since he is a smoker will go ahead and treat with an antibiotic . Cannot use Zithromax since he takes Xarelto. Will treat with Amoxicilli n. Asked patient to call if cough has not resolved after antibiotic completed. Nicotine user 884296389 Z72.0 Discussed smoking cessation. Patient is not ready to quit at this time. Benign pro static hyperplasia 852663359 N40.0 Followed by urologist. Deep venou s thrombosis of lower extremity 699565023 I82.409 Taking Xarelto. Will review chart. Follow up in three months to discuss how long we need to continue DVT prophyllax is. Reviewed previous notes. Plan was to repeat doppler study at one year and consider stopping Xarelto. [id number] Flavio Cerda MD [facility] Special[facility] [address] [place] [address] 09/16/2023 09:48:39 09/20/2023 09:19:33 Bursitis of olecranon of right elbow 0319036671 66453 M70.21 obs [id number] MD Steffen Bain (Adult Med) [address] [place] [address] 11/24/2023 09:48:29 11/24/2023 19:31:26 Obesity 616277456 E66.9 Acute bronchitis 1825146 2 J20.9 Bronchial infection. Treat with antibiotic and inhaler. If no improvemen t in next three days, or if worse, reach out to office or seek medical attention. May need to discuss possibilit y of COPD and use of inhaler further at follow up. Bilateral tinnitus 82620 62381 102 H93.13 Complains of bilateral buzzing in ears. Will set up an audiology assessment . Depressive disorder 0997 9007 F32.A Is still experienci ng depression and anxiety symptoms despite taking Escitalopr am. Will return in one month to discuss the possibilit y of switching to a different medication . Will make an appointmen t with counseling . Essential hypertension 10845068 I10 Blood pressure has increased since March. He has also experience an approximat agapito ten pound weight gain. He is going to work on weight loss and return to recheck blood pressure in three months. Discussed ways to loose weight by decreasing carbohydra marielle and by doing regular exercise. Also suggested decreasing salt intake. Erectile dysfunction 860 141944 F52.21 Continue Tadalafil. It is working well. Deep venou s thrombosis of lower extremity 361067123 I82.409 Unprovoked DVT lower extremity. Completed one year of Xarelto. Repeat doppler study negative for any residual clot. Will stop Xarelto. Nicotine user 492963234 Z72.0 Discussed the possibilit y that smoking was related to DVT. Will try to quit cold turkey. Follow up in three months. Bursitis o f olecranon of right elbow 3819221657 65988 M70.21 Improved today. Elected to avoid surgery. Can wear elbow brace if needed. [id number] MD Steffen Bain (Adult Med) [address] [place] [address] 02/22/2024 14:55:40 02/23/2024 12:40:03 Body mass index 25-29 - overweight 105001266 Z68.29 Edema of l ower extremity 879005566 R60.0 Stat ultrasound to evaluate for DVT. History of unprovoked DVT and recently stopped blood thinner. Advised patient to go to ER if swelling becomes worse or develops increased shortness of breath. Local infe ction of wound 41064455 T14.90XA Persistent cough 4900868 02 R05.3 Cough persistant despite antibiotic treatment. Feels mucous in his throat triggering cough. Has tried nose sprays and allergy medicine without relief. Has deviated septum. May have issues with sinus drainage. Will check sinus CT. Nicotine user 009965865 Z72.0 Trying to quit. Essential hypertension 56173114 I10 Blood pressure still a little elevated today. Will increase Metoprolol to BID. Dyspnea 956475307 R06.00 He does not use the Albuterol much because it is not easily accessible to him. Will try Symbicort BID. At some point would like to get PFTs. Discussed, but will not get now because is getting several other tests scheduled. Dysphagia 53171143 R13.1 0 [id number] MD Steffen Bain (Adult Med) [address] [place] [address] 03/01/2024 10:08:41 03/03/2024 18:39:32 Body mass index 25-29 - overweight 340372328 Z68.29 Foreign body 416192562 Z 87.821 Will proceed with ultrasound to confirm that foreign body is still present and then will likely refer to plastic surgeon or general surgeon for removal. Continue Cephalexin . Essential hypertension 39350250 I10 Blood pressure slightly elevated today. Recently increased Metoprolol to BID. Will repeat at follow up. [id number] MD Steffen Bain (Adult Med) [address] [place] [address] 0 03/05/2024 09:10:50 03/13/2024 12:29:02 Body mass index 25-29 - overweight 489700555 Z68.29 Local infe ction of wound 15976310 T14.90XA Erythema decreased. No evidence of foreign body on ultrasound . Continue Augmentin. Follow up in one weak. Warm compresses . Seek medical attention if worse. Varicose v eins of lower extremity 42272361 I83.91 Recent doppler study negative for DVT. He can remain off the anticoagul ant. Edema likely due to venous insufficie ncy. Will discuss options for treatment at follow up. Essential hypertension 38009789 I10 Blood pressure excellent since Metoprolol increased to BID. Continue present dose. [id number] MD Steffen Bain (Adult Med) [address] [place] [address] 0 03/12/2024 16:35:32 03/13/2024 12:18:21 Right foot drop 0072134394 89748 M21.371 Patient has recently noticed that he is unable to raise his right great toe. Unable to walk on toes. Sometimes trips when walking. History of back issues. Will order stat MRI. May need neurosurgi neil consult. Foreign body 603582177 Z 87.821 Foreign body has been removed from the lesion. Patient completed antibiotic today. No sign of acute infection. He can use Vaseline on the wound to help skin heal. Observe for any further signs of infection. Essential hypertension 35110214 I10 Blood pressure good today. [id number] Kenneth Sequeira DO [facility] Medical Special[facility] [address] [place] [address] 03/19/2024 14:33:21 03/20/2024 09:08:40 Esophageal dysphagia 85567958 R13.19 solids x 4-5 years.Wors e with chicken, pork chop, pork steak. Has to cut into really small pieces, but even then will get stuck. Has to get it to move down via manual regurgitat ion. Feels like it's going to make him throw up. States Mother had to have esophagus dilation Hoarse 06865704 R49.0 3 weeks. Await EGD and appointmen t also made with ENT Abdominal bloating 91860 3237 R14.0 likely due to diet. Will test for H pylori at time of EGD [id number] MD Steffen Bain (Adult Med) [address] [place] [address] 06/13/2024 14:20:53 06/15/2024 16:28:50 Nicotine user 254704029 Z72.0 Needs to quit smoking for surgery. Reviewed medication options to help him quit. Decided on Clonidine due to dual action of helping with smoking cessation and blood pressure control. Reviewed side effects. Setting quit date to one week from now June 20. Will follow up in one month to see how he is doing. Essential hypertension 12342151 I10 Stop Metoprolol . Patient concerned it may be causing some fatigue. Will switch to Clonidine since this can also help with smoking cessation. Advised patient to let me know if he has any dizziness. Will return in one month for blood pressure check. Hyperlipidemia 28786591 E78.5 Returning for fasting lipid panel. Right foot drop 99770363 01 96164 M21.371 Neurosurge on recommende d surgery. Needs to quit smoking for three weeks. History of deep vein thrombosis 025063244 Z86.718 Will need to consider this if has surgery. Stricture of esophagus 25288001 K22.2 Saw Gastroente rology for dilation. Chronic sinusitis 997774 00 J32.9 Followed by ENT. Will probably need surgery. Feels that history of nasal fracture is interferin g with sinus drainage. May need surgical interventi on. Wheezing 98604297 R06.2 Occasional expiratory wheeze on left. Likely COPD. Has been using long acting inhaler once a day. Can increase to twice a day. Continue Albuterol as needed. [id number] Jaswant Campo MD [facility] [address] [place] [address] 04/09/2024 14:43:22 04/10/2024 09:09:09 Deviated nasal septum 565226112 J34.2 start Flonase follow back in a month CT scan results pending [id number] [facility] [address] [place] [address] 05/07/2024 15:01:53 05/08/2024 13:39:45 Chronic sinusitis 22911577 J32.9 [id number] Nicole Stoddard MD [facility] (Adult Med) [address] [place] [address] 07/16/2024 16:30:00 07/19/2024 11:42:54 Pre-surgery evaluation 450264045 Z01.818 Eczema 83054676 L30.9 Clobetasol to affected area no more than two weeks in a row. Do not use on face or genital area. Nicotine user 890531688 Z72.0 Quit smoking a week ago. Essential hypertension 03246191 I10 Will get yearly blood work. Will get it done fasting tomorrow morning. Will also get urine. Blood pressure well controlled . Continue present medication . 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 Will get EKG. Right foot drop 16297976 01 00659 M21.371 Has quit smoking for a week. After three weeks will get his urine test and then can proceed with surgery. [id number] Vernon Cano MD [facility] [place] [facility] [address] [place] [address] 08/07/2024 10:02:29 08/09/2024 15:51:05 Bradycardia 13410315 R00.1 Electrocar diogram abnormal 488833052 R94.31 Essential hypertension 92184647 I10 Preoperati ve cardiovascular examination 820248577 Z01.810 Pure hypercholesterolemia 783260311 E78.00 Dyspnea on exertion 6084 5006 R06.09 Snoring 41283825 R06.83 [id number] Vernon Cano MD [facility] [place] [facility] [address] [place] [address] 09/20/2024 15:53:53 09/21/2024 15:21:31 Dyspnea on exertion 24719251 R06.09 Electrocar diogram abnormal 973006926 R94.31 Essential hypertension 94666318 I10 Pure hypercholesterolemia 257547690 E78.00 Aneurysm o f ascending aorta 003588598 I71.21 [id number] [facility] [address] [place] [address] 10/02/2024 09:48:10 10/05/2024 10:34:58 Right foot drop 8162607786 84215 M21.371 Scheduled for back surgery October 11. Has been cleared by Cardiology . Is not smoking. 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 Will be schedule after back surgery. Will let myself or the specialist know if develops headaches. 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 Continue present medication . Would like a three month prescripti on. Hyperlipidemia 25821016 E78.5 Last lipid panel checked in August and LDL was excellent. Continue present medication . Eczema 25760034 L30.9 Periodical ly used Clobetasol as needed. Is aware to not use it regularly. Does not need a refill today. Dyspnea 646214117 R06.00 Likely has COPD but we have not been able to schedule PFTs. Doing well with Breyna regularly and Albuterol as needed. Uses Albuterol about once a day but not sure he needs it. Told him he can use it as needed. After surgery will proceed with PFTs to make diagnoses. On chest CT done in September lungs were clear. Depressive disorder 6868 9007 F32.A Is doing well on this medication . Nocturia 292700910 R35.1 History of benign prostatic hypertroph y. Was prescribed Tadalafil which helps symptoms. Gastroesop hageal reflux disease without esophagitis 149927717 K21.9 Was taking Prilosec but it is not covered by insurance. Will try Pepcid. I will give him 20 mg but I told him he can take two tablets once a day or one tablet twice a day, what ever works best for his symptoms. If that does not control his symptoms he can go back to the Prilosec. Albuminuria 647838925 R8 0.9 Probably secondary to hypertensi on. Could also have been due to dehydratio n at the time of testing. Will repeat at follow up. Aneurysm o f aortic root 295454725 I71.[address]i st ordered for further assessment of his aneurysm showed a 51 cm aneurysm. Spoke to him regarding this. Would not be discussing repair until 55 cm so this should not interfere with surgery. He has referred him to a surgeon to continue to follow this. [id number] MD Steffen Bain (Adult Med) [address] [place] [address] 11/16/2024 12:18:50 11/20/2024 12:43:32 History of lumbar fusion 5561565324 9106 Z98.1 Post five weeks from lumbar fusion. Still having quite a bit of pain but it is improving daily. It has been hard for him to limit his activity. He has some tingling in his left foot now and some pain in his back which he has told the surgeon about. They expect this will resolve. He is trying to avoid pain medication except for Tylenol and we discussed the fact that this may be causing him to have more pain then the typical patient who takes additional pain medication . He will follow up in three months. 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 Will reach out to reschedule . Would like to get it done in the winter for financial reasons. Will let me know if he has an increase in headaches. Aneurysm o f ascending aorta 039637480 I71.21 Has appointmen t with cardiovasc ular surgeon for further evaluation . Sleep cale wilma disturbance 42017932 G47.9 Seeing sleep medicine. Has started melatonin. Will be getting a home sleep study. Nicotine user 070090857 Z72.0 Still not smoking. Essential hypertension 04516021 I10 Blood pressure excellent today. Continue present medication . Albuminuria 693241126 R8 0.9 Has been working on hydrating and drinking more water. Recommende d six to eight glasses of water a day. Will return to repeat albumin/cr eatinine ratio. Laboratory test result abnormal 557199837 R89.9 Last glucose elevated. Will return for fasting glucose and hemoglobin A1C. Leukocytosis 460724395 D 72.829 Last WBC was elevated. Will return to get CBC with dif. Depressive disorder 3131 9007 F32.A Is doing well on this medication . Hyperlipidemia 97685086 E78.5 Last lipid panel checked in August and LDL was excellent. Continue present medication . Nocturia 027107622 R35.1 History of benign prostatic hypertroph y. Was prescribed Tadalafil which helps symptoms. Dyspnea 751329853 R06.00 Likely has COPD but we have not been able to schedule PFTs. Doing well with Breyna regularly and Albuterol as needed. Uses Albuterol about once a day but not sure he needs it. Told him he can use it as needed. Will schedule PFTs once he has recovered from surgery. [id number] Vernon Cano MD [facility] [address] [place] [address] 12/20/2024 15:20:59 12/21/2024 15:01:00 Obese class I 7124059414 39840 E66.811 Aneurysm o f ascending aorta 306174181 I71.21 Electrocar diogram abnormal 632981202 R94.31 Essential hypertension 28894886 I10 Pure hypercholesterolemia 507439243 E78.00 Health Concerns Section Related Observation LastModified by Organization Detai ls LastModified Time None Recorded Concern Status LastModified by Organization Details LastModified Time None Recorded Advance Directives Directive N: Payers Insurance Date Sequence Insurance Name Policy Number Policy Peoples Covered Member ID Peoples Member ID Guarantor Name 02/26/2025 1 [employer] [id number] Cody Morley [id number] Cody Morley 02/26/2025 1 [employer] (MEDICARE REPLACEMENT/A DVANTAGE - HMO) [id number] Cody Morley [id number] Cody Morley
== END 2025-03-12 13:28 | disposition home or self-care (01) ==
LOC: ANHCARD 13:35
PROVIDERS: PCP Internal Medicine Interventional Cardiology; Visit Provider Emergency Medicine
DX: I45.89 Other specified conduction disorders (principal); I44.4 Left anterior fascicular block
CPT/HCPCS: 93005

== ENCOUNTER 2025-06-18 11:14 | Outpatient (CLI) | payer MEDICARE, SELFPAY ==
--- NOTE | ~2025-06-18 | XR_ITS ---
Abdominal radiograph(s) INDICATION: Neuropathic pain COMPARISON: CT abdomen pelvis 11/17/2022 TECHNIQUE: 2 views supine AP abdomen FINDINGS: Visualized lung bases clear. Scattered colonic gas and stool. Small bowel distention right hemiabdomen. No evidence of organomegaly. No abnormal abdominal calcifications. No acute bony abnormality. IMPRESSION: 1. No acute abnormality identified. Reviewed, dictated and finalized at location R. FIELD PU[employer]ER
== END 2025-06-18 11:15 | disposition home or self-care (01) ==
LOC: MICIMG 11:16
PROVIDERS: PCP Emergency Medicine; Visit Provider Emergency Medicine
DX: M79.2 Neuralgia and neuritis, unspecified (principal)
CPT/HCPCS: 74018